=== PATIENT | female | born 1995 | race Caucasian/White ===

== ENCOUNTER 2024-07-08 14:36 | Outpatient (AMB) | payer MEDICAID, SELFPAY ==
[2024-07-08 14:51] VITALS: BP 106/67; PULSE 90; RESP 20; TEMP 36.4; O2SAT 98; BMI 26.9
--- NOTE | 2024-07-08 14:51 | AMB.GYNCLNOT ---
Vital Signs 07/08/24 14:51 Height 1.68 m Height Method Stated Weight 75.807 kg Weight Measurement Method Standing Scale BMI 26.9 BP 106/67 Blood Pressure Source Automatic Cuff Blood Pressure Location Right Upper Arm Position Sitting Respiration 20 Pulse 90 Pulse Source Monitor Temp 97.5 F Temp Source Temporal Artery Scan Pulse Oximetry (%) 98 Oxygen Delivery Method Room Air Allergies/Home Meds Allergies & Medications Allergies No Known Allergies Allergy (Unknown, Verified 07/08/24 14:52) Medication Reconciliation vit no.95-ferrous fumarate 28 mg-folic acid 800 mcg tablet () 1 tab PO QDAY 08/08/22 [History Confirmed 07/08/24] doxylamine 10 mg-pyridoxine (vit B6) 10 mg tablet,delayed release (Diclegis) 1 tab PO BID 30 days #60 tabs 07/08/24 [Rx] vitamins with calcium no.72-iron 29 mg-folic acid 1 mg tablet ( Plus) 1 tab PO QDAY 90 days #90 tabs 07/08/24 [Rx] Intake Visit Data Collection New Patient or Established: Established Patient (seen at [facility] within 3 years) 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 Do You Feel Safe at Home: Yes Authorities Contacted: N/A PCP or OBGYN visit in last 3 months: Yes Last menstrual period: 04/26/24 Pain Present Currently: No Smoking Status Smoking Status: Never smoker 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 1. Little interest or pleasure in doing things: not at all 2. Feeling down, depressed, or hopeless: not at all Total score: 0 Depression screen completed yes Social History Living Situation History Marital Status: Lives With: Family Housing: House Tobacco History Smoking Status: Never smoker Second Hand Smoke Exposure: No Alcohol History Alcohol Intake: Never Alcohol Intake Frequency: holidays/special occasions only Domestic Abuse History Do You Feel Safe at Home: Yes Past Medical History Past Medical History Have you ever been diagnosed with any of the following: Neurological Problems Seizures: No Migraine: Yes Cardiology Problems Congestive Heart Failure: No Respiratory Problems Chronic Obstructive Pulmonary Disease (COPD): No Asthma: Yes ( A CHILD) Bronchitis: No Emphysema: No Pneumonia: No Pulmonary Fibrosis: No Tuberculosis: No Pulmonary Embolism: No Pulmonary Edema: No Sleep Apnea: No Stomache/Intestinal Problems Hepatitis: No Genital/Urinary Problems Renal Disease: No Reproductive Problems Endometriosis: No Genital Herpes: No Gonorrhea: No Pelvic Inflammatory Disease: No Previous Pregnancies: Yes Syphilis: No Uterine Prolapse: No Endocrine Problems Diabetes Mellitus Type 1: No Diabetes Mellitus Type 2: No Other Problems Hospitalization: No Down Syndrome: No Developmental Delay: No Shingles: No Falls: No Blood Transfusions: No Blood Transfusion Reaction: No Anesthesia Reactions: No Organ Transplant: No Chemotherapy: No Radiation Therapy: No Hyperbaric Therapy: No MRSA: No VRSA: No Vancomycin-Resistant Enterococci: No Human Immunodeficiency Virus (HIV): No Chicken Pox: No Measles: No Mumps: No Rubella (Kinyarwanda Measles): No Pertussis: No Clostridium Difficile: No Cancer: No History of Present Illness HPI Narrative 29 yo for test/amenorrhea. lmp 04/26/24. EDC 01/30/25, happy with + preg test. complaints of nausea, no sab complaints. FOB involved. previous c/s last for breech. No PMH, no social habit. 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 IUP 10 w5/. last pap 2023. Review of Systems Review of Systems Systems Reviewed: All systems reviewed, normal except as documented Exam General Limitations: no limitations General Appearance: alert, in no apparent distress, comfortable, cooperative, healthy appearing, well developed and well groomed Head Head exam: atraumatic, normocephalic and normal inspection Chest Chest inspection: Present normal inspection and symmetric chest wall rise Resp Respiratory exam: Present normal lung sounds bilaterally Card Cardiovascular exam: Present regular rate, normal rhythm and normal heart sounds Abdominal Abdominal exam: Present soft and normal bowel sounds Psych Psychiatric exam: Present normal affect and normal mood Results Objective Laboratory: + test, IUP 10 week 5/7 Assessment & Plan Diagnosis / Problem List (1) Amenorrhea: Status: Acute (2) confirmed by positive urine test: Status: Acute Plan order OB panel, schedule 1st tri sono for viability and confirm dates. NIPT and carrier screen today. Diclegis ordered for nausea and prenatals. review sab precaution. discuss diet and rest, ER precaution. rtc for OBI Additional Plan Follow Up: 4 Weeks Office Procedures OB Clinic LOC & Office Proc's Nursing/Assessment Patient Status: Established Patient OB Clinic Nursing Assessment: Medication Reconciliation, Update PMH in EMR and Vital Signs OB Clinic Coordination of Care: Complex Care and Chronic Disease 1-5, Education Complex Pt/Fam, Consent,records obtained, informed consent, Lab and Imaging orders and Staff clarify orders Established Patient Charge Established Patient Point Assignment: 105 Established Patient Point Charge: EP Level 3 (80-115) In Clinic Bedside tests Bedside HCG: Yes Results HGB HGB n/a Last Edit by Lui Kelley MA on 07/08/24 15:08 HGB previously reported as positive Lui Kelley 07/08/24 15:08 test not perform Urine HCG Urine HCG Positive Last Edit by Lui Kelley MA on 07/08/24 15:08 Urine HCG previously reported as Negative Lui Kelley 07/08/24 15:08 error, results were put in twice Urine HCG Urine HCG Positive Last Edit by Lui Kelley MA on 07/08/24 15:00
== END 2024-07-08 15:37 | disposition home or self-care (01) ==
LOC: HODSOBC 14:36
PROVIDERS: PCP Family Medicine; Referring Provider Family Medicine; Supervising Provider Advanced Practice Midwife; Visit Provider Advanced Practice Midwife
DX: Z32.01 Encounter for pregnancy test, result positive (principal)
CPT/HCPCS: 81025; 99213; G0463

== ENCOUNTER 2024-07-30 14:07 | Outpatient (AMB) | payer MEDICAID, SELFPAY ==
[2024-07-30 14:27] VITALS: BP 98/65; PULSE 97; RESP 18; TEMP 36.2; O2SAT 98; BMI 27.6
--- NOTE | 2024-07-30 14:27 | AMB.OBVISIT ---
Vital Signs 07/30/24 14:27 Height 1.68 m Height Method Stated Weight 77.791 kg Weight Measurement Method Standing Scale BMI 27.6 BP 98/65 Blood Pressure Source Automatic Cuff Blood Pressure Location Right Upper Arm Position Sitting Respiration 18 Pulse 97 Pulse Source Monitor Temp 97.1 F Temp Source Oral Pulse Oximetry (%) 98 Oxygen Delivery Method Room Air Allergies/Home Meds Allergies & Medications Allergies No Known Allergies Allergy (Unknown, Verified 07/30/24 14:28) Medication Reconciliation vitamins with calcium no.72-iron 29 mg-folic acid 1 mg tablet ( Plus) 1 tab PO QDAY 90 days #90 tabs 07/08/24 [Rx Confirmed 07/30/24] Intake Visit Data Collection New Patient or Established: Established Patient (seen at [facility] within 3 years) Reason for Visit:: CARE Seen by Clinical Staff ONLY (RN/MA): No [place] Management Specialist Required: No Do You Feel Safe at Home: Yes Authorities Contacted: N/A PCP or OBGYN visit in last 3 months: Yes Hx Now: Yes Are you currently on any form of Control: No Pain Present Currently: No Pain Scale Used: [place]/Numerical Pain scale:: 0 Smoking Status Smoking Status: Never smoker Questionnaires Covid-19 Vaccine Questionnaire Has patient been vacinated for Covid-19 Have you been vacinated for Covid-19: Yes PHQ-9 PHQ-2 Over the last 2 weeks, how often have you been bothered by any of the following problems? 1. Little interest or pleasure in doing things: not at all 2. Feeling down, depressed, or hopeless: not at all Total score: 0 PHQ-9 3. Trouble falling or staying asleep, or sleeping too much: Not at all 4. Feeling tired or having little energy: Not at all 5. Poor appetite or overeating: Not at all 6. Feeling bad about yourself - or that you are a failure or have let yourself or your family down: Not at all 7. Trouble concentrating on things, such as reading the newspaper or watching television: Not at all 8. Moving or speaking so slowly that other people could have noticed? - Or the opposite - being so fidgety or restless that you have been moving around a lot more than usual: not at all 9. Thoughts that you would be better off or of hurting yourself in some way: Not at all Total score: 0 Source: Developed by Drs. Bill Mendoza, Milvia Goins, Itz Montero and colleagues, with an educational brea from [employer]. 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 improved with tylenol. light FM, no SAB complaintsc/o headache. improved with tylenol. Nausea most of the day comfort measure for nausea and head ache. Tylenol 2 tab q 6-8hr as needed for headache. increase protien, frequent meals.increase fluid. discuss SAB precaution. AFP NV, sched with MFM for anatomy scan. RTC 4 week TESSA Calculator Estimated Delivery Date Method Current WG Current Estimate 01/31/25 LMP (Certain) 13w 4d Comments: 29 yo . LMP 04/26/24, EDC 01/31/25. O+,abs-,rpr;;nr, rub imm, HBSAG-,hiv-,GC/CT-, HC-, NIPT and carrier screen- Office Procedures OB Clinic LOC & Office Proc's Nursing/Assessment Patient Status: Established Patient OB Clinic Nursing Assessment: Medication Reconciliation, Update PMH in EMR and Vital Signs OB Clinic Coordination of Care: Complex Care and Chronic Disease 1-5, Consent,records obtained, informed consent, Education Simp Pt/Fam, Lab and Imaging orders, Results/Orders obtained and Staff clarify orders Special Needs: Heart tones Established Patient Charge Established Patient Point Assignment: 135 Established Patient Point Charge: EP Level 4 (120-155) Assessment & Plan Diagnosis / Problem List (1) Normal in multigravida in second trimester: Status: Acute Plan AFP, schedule MFM anatomy scan, sab precaution. comfort measure for nausea and headache, Tylenol as needed, increase protien and fluid Additional Plan Follow Up: 4 Weeks (obc)
== END 2024-07-30 15:00 | disposition home or self-care (01) ==
LOC: HODSOBC 14:07
PROVIDERS: PCP Family Medicine; Referring Provider Family Medicine; Supervising Provider Advanced Practice Midwife; Visit Provider Advanced Practice Midwife
DX: Z34.81 Encounter for supervision of other normal pregnancy, first trimester (principal); Z3A.13 13 weeks gestation of pregnancy
CPT/HCPCS: 81001; 99214; G0463

== ENCOUNTER 2024-09-08 22:40 | Emergency (ER) | payer MEDICAID, SELFPAY ==
[2024-09-08 22:42] VITALS: BMI 28.4
[2024-09-08 23:03] VITALS: BP 106/70; PULSE 88; RESP 16; TEMP 36.7; O2SAT 99
--- NOTE | 2024-09-08 23:28 | EDNOTE_ITS ---
ED Extremity Problem RME/HPI General Chief complaint: Extremity Problem,Nontraumatic Stated complaint: WANT TO SEE IF THEY'LL REMOVE MY TOENAIL Time Seen by Provider: 09/08/24 22:59 Source: patient, RN notes reviewed and old records reviewed Arrival date/time: 09/08/24 22:40 Mode of arrival: ambulatory Limitations: no limitations RME / HPI RME / HPI Narrative: 29yof presents to ED for 3-day history of right great toe pain after getting a pedicure. Patient reports redness, swelling and pus draining from underneath toenail today. She removed part of the nail at home this afternoon. No fever or joint pain/swelling reported. No medications relief captain. Related Data Previous Rx's ?Medication ?Instructions ?Recorded vitamins with calcium 1 tab PO QDAY 90 days # 90 tabs 07/08/24 no.72-iron 29 mg-folic acid 1 mg tablet ( Plus) cephalexin 500 mg capsule 500 mg PO Q6H 7 days #28 cap s 09/08/24 Allergies Allergy/AdvReac Type Severity Reaction Status Date / Time No Known Allergies Allergy Unknown Verified 09/08/24 22:41 Review of Systems Review of Systems Systems Reviewed: All systems reviewed, normal except as documented Musculoskeletal Musculoskeletal: Denies arthralgias, Denies joint swelling and Denies limited range of motion Integumentary/Breasts Comments: Reports redness, swelling, nail changes Past Medical History Social History SMOKING STATUS: Never smoker SUBSTANCE USE: does not use ALCOHOL: Never Past Medical History Comments PMH COMMENT: denies pmhx ED Exam General Limitations: Present no limitations General appearance: Present alert and in no apparent distress Head Head exam: Present atraumatic and normocephalic Eye Eye exam: Present normal appearance, PERRL and EOMI ENT ENT exam: Present normal exam and mucous membranes moist Neck Neck exam: Present normal inspection and full ROM Chest Chest inspection: Present normal inspection and symmetric chest wall rise Respiratory Respiratory exam: Present normal lung sounds bilaterally; Absent respiratory distress Cardiovascular Cardiovascular exam: Present regular rate and normal rhythm Extremities Exam Extremities exam: Present other (Right great toenail distal half is removed (patient self removed at home). Mild erythema, swelling, purulence beneath remaining nail. Proximal nail remains intact) Neurological Exam Neurological exam: Present alert and oriented X3 Psychiatric Psychiatric exam: Present normal affect and normal mood Skin Skin exam: Present warm, dry and intact Course Quality Measures none Vital Signs Vital signs: Vital Signs Temperature 98.1 F 09/08/24 23:03 Pulse Rate 88 09/08/24 23:03 Respiratory Rate 16 09/08/24 23:03 Blood Pressure 106/70 09/08/24 23:03 Pulse Oximetry (%) 99 09/08/24 23:03 Oxygen Delivery Method Room Air 09/08/24 23:03 Extremity Problem MDM Narrative MDM Narrative:: 29yof presents to ED for 3-day history of right great toe pain after getting a pedicure. Patient reports redness, swelling and pus draining from underneath toenail today. She removed part of the nail at home this afternoon. No fever or joint pain/swelling reported. No medications relief captain. Proximal nail is intact. Will leave nail in place to encourage regrowth and preserve nailbed. Antibiotic will be prescribed for infection. No evidence of abscess or paronychia at this time. Encouraged f/u with podiatry if needed. Stable for dc, RTED precautions given. Patient data External records reviewed:: [facility] previous records (08/19/23 ED visit for miscarriage) Clinical information provided by:: patient Social determinants that could affect healthcare access:: none Patient has the following chronic illnesses:: none How is presenting disease/condition affected by chronic disease/condition?: no chronic disease Evaluation data The following diagnostics were reviewed and interpreted by me:: other (specify) (none) Lab and/or radiology exams considered but not ordered:: toe xrays: no hx of injury or trauma Interpretation Summary: na Medications / Prescriptions Medications or Prescriptions considered but not ordered:: none Medication administrations:: none Consultations Consultation(s) initiated? (list below): No Diagnosis Extremity Problem Differential Diagnosis: other (ingrown nail, cellulitis, abscess, paronychia, dermatitis) Most likely diagnosis given after review of the tests above:: toe pain/infection Admission Indicated Admission indicated?: not indicated Admission Request Was there a request for admission?: No Disposition Plan Disposition Plan: Discharge Discharge Attestation Discharge Attestation: The patient and all family members were given an opportunity to ask questions and understood the discharge instructions. Discharge instructions specifically effects, indications for sooner follow up or return to the emergency department, and the expected course of current diagnosis. Patient condition: Stable Discharge Plan Plan Patient Disposition: HOME (Self Care) Patient condition on transfer: Stable Prescriptions/Referrals Prescriptions/Med Rec: New cephalexin 500 mg capsule 500 mg PO Q6H 7 Days Qty: 28 0RF No Action Plus 29 mg iron- 1 mg tablet 1 tab PO QDAY 90 Days Qty: 90 3RF Referrals: [facility] [Other] - In 1 week No Primary/Family,Physician [Primary Care Provider] - In 1 week Ivan Richey DPM [Physician] - (Call to schedule an appointment for a visit as needed, if symptoms worsen) Problem List Clinical Impression: Infection of toenail Patient/Caregiver Discharge Instructions Education Materials: ED Toenail Ingrown Infec Abx Onl Print Language: Urdu Stand Alone Forms: Natasha Award Info., Patient Portal Info Letter PA/FISHING GAME WARDEN Supervising Physician PA/FISHING GAME WARDEN Supervising Physician: Poppy
== END 2024-09-08 23:37 | disposition home or self-care (01) ==
PROVIDERS: Emergency Provider Emergency Medicine
DX: L03.031 Cellulitis of right toe (principal)
CPT/HCPCS: 99281

== ENCOUNTER 2024-09-24 14:35 | Outpatient (AMB) | payer MEDICAID, SELFPAY ==
[2024-09-24 14:51] VITALS: BP 100/66; PULSE 80; RESP 17; TEMP 36.4; O2SAT 98; BMI 29.7
--- NOTE | 2024-09-24 14:51 | OBCLNT_ITS ---
Vital Signs 09/24/24 14:51 Height 1.68 m Height Method Measured Weight 83.915 kg Weight Measurement Method Standing Scale BMI 29.7 BP 100/66 Blood Pressure Source Automatic Cuff Blood Pressure Location Right Upper Arm Position Sitting Respiration 17 Pulse 80 Pulse Source Monitor Temp 97.6 F Temp Source Temporal Artery Scan Pulse Oximetry (%) 98 Oxygen Delivery Method Room Air Allergies/Home Meds Allergies & Medications Allergies No Known Allergies Allergy (Unknown, Verified 09/24/24 14:52) Medication Reconciliation vitamins with calcium no.72-iron 29 mg-folic acid 1 mg tablet ( Plus) 1 tab PO QDAY 90 days #90 tabs 07/08/24 [Rx Confirmed 09/24/24] Intake Visit Data Collection New Patient or Established: Established Patient (seen at [facility] within 3 years) Reason for Visit:: OBC Consent obtained for Telemed Visit: No Seen by Clinical Staff ONLY (RN/MA): No Employee Development Director Required: No Do You Feel Safe at Home: Yes Authorities Contacted: N/A PCP or OBGYN visit in last 3 months: Yes Date of Last PCP or OBGYN visit: 09/08/24 Hx Now: Yes Are you currently on any form of Control: No Pain Present Currently: Yes Pain scale:: 3 Smoking Status Smoking Status: Never smoker Questionnaires Covid-19 Vaccine Questionnaire Has patient been vacinated for Covid-19 Have you been vacinated for Covid-19: No PHQ-9 PHQ-2 Over the last 2 weeks, how often have you been bothered by any of the following problems? 1. Little interest or pleasure in doing things: not at all PHQ-9 3. Trouble falling or staying asleep, or sleeping too much: Not at all 4. Feeling tired or having little energy: Not at all 5. Poor appetite or overeating: Not at all 6. Feeling bad about yourself - or that you are a failure or have let yourself or your family down: Not at all 7. Trouble concentrating on things, such as reading the newspaper or watching television: Not at all 8. Moving or speaking so slowly that other people could have noticed? - Or the opposite - being so fidgety or restless that you have been moving around a lot more than usual: not at all 9. Thoughts that you would be better off or of hurting yourself in some way: Not at all If you checked off any problems, how difficult have these problems made it for you to do your work, take care of things at home, or get along with other people?: not difficult at all Source: Developed by Drs. Bill Mendoza, Milvia Goins, Itz Montero and colleagues, with an educational brea from [employer]. 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 improved with tylenol. light FM, no SAB complaintsc /o headache. improved with tylenol. Nausea most of the day comfort measure for nausea and head ache. Tylenol 2 tab q 6-8hr as needed for headache. increase protien, frequent meals.increase fluid. discuss SAB precaution. AFP NV, sched with MFM for anatomy scan. RTC 4 week 09/24/24 -?-?-?-?-?-?-?-?-?-?-?-?- 21w 4d 83.915 kg 100/66 absent unknown 20 145 active doing well. fetus active. no c/o uc,leaking,bleeding. c/o pelvic pain. reports new varicose vein R inner leg, inside near knee. no c/o phlebitis mfm scheduled for 09/26. discuss ptl precaution. comfort measure for varicose veins and pelvic pain. rtc 4 week. 3rd tri lab nv TESSA Calculator Estimated Delivery Date Method Current WG Current Estimate 01/31/25 LMP (Certain) 21w 4d Notes Visit Date: 09/24/24 Last Updated by: Muriel Davis CNM LMP: 04/26/24. EDC 01/31/25. OB panel: O+,abs-, rpr;;nr, rub imm, hbsag-, hiv-, HC-, GC/CT-, NIPT-/female, sma/cf- Office Procedures OB Clinic LOC & Office Proc's Nursing/Assessment Patient Status: Established Patient OB Clinic Nursing Assessment: Medication Reconciliation, Update PMH in EMR and Vital Signs OB Clinic Coordination of Care: Complex Care and Chronic Disease 1-5, Consent,records obtained, informed consent, Education Simp Pt/Fam and 4+ Authorizations needed Special Needs: Heart tones Established Patient Charge Established Patient Point Assignment: 130 Established Patient Point Charge: EP Level 4 (120-155) Assessment & Plan Diagnosis / Problem List (1) High risk for intrapartum complications in second trimester: Status: Acute (2) Encounter for maternal care for low transverse scar from previous delivery: Status: Acute Plan Discuss labs. MFM 09/26/24. 3rd tri lab NV. discuss ptl precaution. rtc 4 week obc. comfort measure for pelvic pain and varicose veins Additional Plan Follow Up: 4 Weeks (obc)
== END 2024-09-24 15:28 | disposition home or self-care (01) ==
PROVIDERS: PCP Advanced Practice Midwife; Referring Provider Advanced Practice Midwife; Supervising Provider Advanced Practice Midwife; Visit Provider Advanced Practice Midwife
DX: O09.292 Supervision of pregnancy with other poor reproductive or obstetric history, second trimester (principal); O34.211 Maternal care for low transverse scar from previous cesarean delivery; O09.892 Supervision of other high risk pregnancies, second trimester; O22.02 Varicose veins of lower extremity in pregnancy, second trimester; I83.811 Varicose veins of right lower extremity with pain; Z3A.21 21 weeks gestation of pregnancy
CPT/HCPCS: 99214; G0463

== ENCOUNTER 2024-10-21 14:38 | Outpatient (AMB) | payer MEDICAID, SELFPAY ==
[2024-10-21 14:51] VITALS: BP 100/62; PULSE 91; RESP 18; TEMP 36.2; O2SAT 98; BMI 30.4
--- NOTE | 2024-10-21 14:51 | OBCLNT_ITS ---
Vital Signs 10/21/24 14:51 Height 1.68 m Height Method Stated Weight 85.899 kg Weight Measurement Method Standing Scale BMI 30.4 BP 100/62 Blood Pressure Source Automatic Cuff Blood Pressure Location Left Upper Arm Position Sitting Respiration 18 Pulse 91 Pulse Source Monitor Temp 97.1 F Temp Source Oral Pulse Oximetry (%) 98 Oxygen Delivery Method Room Air Allergies/Home Meds Allergies & Medications Allergies No Known Allergies Allergy (Unknown, Verified 10/21/24 14:52) Medication Reconciliation vitamins with calcium no.72-iron 29 mg-folic acid 1 mg tablet ( Plus) 1 tab PO QDAY 90 days #90 tabs 07/08/24 [Rx Confirmed 10/21/24] clotrimazole 1 % vaginal cream 1 appful vaginal QHS #45 grams 10/21/24 [Rx] metronidazole 500 mg tablet 500 mg PO BID 7 days #14 tabs 10/21/24 [Rx] Intake Visit Data Collection New Patient or Established: Established Patient (seen at [facility] within 3 years) Reason for Visit:: CARE Seen by Clinical Staff ONLY (RN/MA): No Broadcast Maintenance Technician Required: No Do You Feel Safe at Home: Yes Authorities Contacted: N/A PCP or OBGYN visit in last 3 months: Yes Hx Now: Yes Are you currently on any form of Control: No Pain Present Currently: No Pain Scale Used: [place]/Numerical Pain scale:: 0 Smoking Status Smoking Status: Never smoker Questionnaires Covid-19 Vaccine Questionnaire Has patient been vacinated for Covid-19 Have you been vacinated for Covid-19: No PHQ-9 PHQ-2 Over the last 2 weeks, how often have you been bothered by any of the following problems? 1. Little interest or pleasure in doing things: not at all 2. Feeling down, depressed, or hopeless: not at all Total score: 0 PHQ-9 3. Trouble falling or staying asleep, or sleeping too much: Not at all 4. Feeling tired or having little energy: Not at all 5. Poor appetite or overeating: Not at all 6. Feeling bad about yourself - or that you are a failure or have let yourself or your family down: Not at all 7. Trouble concentrating on things, such as reading the newspaper or watching television: Not at all 8. Moving or speaking so slowly that other people could have noticed? - Or the opposite - being so fidgety or restless that you have been moving around a lot more than usual: not at all 9. Thoughts that you would be better off or of hurting yourself in some way: Not at all Total score: 0 Source: Developed by Drs. Bill Mendoza, Milvia Goins, Itz Montero and colleagues, with an educational brea from [employer]. 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 improved with tylenol. light FM, no SAB complaintsc /o headache. improved with tylenol. Nausea most of the day comfort measure for nausea and head ache. Tylenol 2 tab q 6-8hr as needed for headache. increase protien, frequent meals.increase fluid. discuss SAB precaution. AFP NV, sched with MFM for anatomy scan. RTC 4 week 09/24/24 -?-?-?-?-?-?-?-?-?-?-?-?- 21w 4d 83.915 kg 100/66 absent unknown 20 145 active doing well. fetus active. no c/o uc,leaking,bleeding. c/o pelvic pain. reports new varicose vein R inner leg, inside near knee. no c/o phlebitis mfm scheduled for 09/26. discuss ptl precaution. comfort measure for varicose veins and pelvic pain. rtc 4 week. 3rd tri lab nv 10/21/24 -?-?-?-?-?-?-?-?-?-?-?-?- 25w 3d 85.899 kg 100/62 absent unknown 25 145 active Patient for unschedule d visit today. Complains of feeling balls in the vaginal perineal area. Patient states that the lumps seem to disappear when she is lying down. And increase when she stands up. The lumps are not painful. Patient has on examination a large area increased varicosities. Nontender to touch. No phlebitis noted and not swelling. Perineal area is clean no lesions. When patient stands there is a fullness in both labia however labia is soft and nontender to palpation. There is a increased varicosity near the clitoris. And I felt like in the right groin area lymph node. Vagina is red and swollen. Increased white clumpy discharge. And slight odor. Fetus is active. Increase rest. Elevate hips. Try to limit standing or sitting in 1 position. I discussed perineal support and comfort measures. New swab today. 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 Third trimester labs were ordered. Patient referred to OB for previous management TESSA Calculator Estimated Delivery Date Method Current WG Current Estimate 01/31/25 LMP (Certain) 25w 3d Notes Visit Date: 09/24/24 Last Updated by: Muriel Davis CNM LMP: 04/26/24. EDC 01/31/25. OB panel: O+,abs-, rpr;;nr, rub imm, hbsag-, hiv-, HC-, GC/CT-, NIPT-/female, sma/cf- Office Procedures OB Clinic LOC & Office Proc's Nursing/Assessment Patient Status: Established Patient OB Clinic Nursing Assessment: Medication Reconciliation, Update PMH in EMR and Vital Signs OB Clinic Coordination of Care: Complex Care and Chronic Disease 1-5, Consent,records obtained, informed consent, Education Simp Pt/Fam, Lab and Imaging orders, Results/Orders obtained and Staff clarify orders Special Needs: Heart tones Established Patient Charge Established Patient Point Assignment: 135 Established Patient Point Charge: EP Level 4 (120-155) Assessment & Plan Diagnosis / Problem List (1) High risk for intrapartum complications in second trimester: Status: Acute (2) Encounter for maternal care for low transverse scar from previous delivery: Status: Acute (3) Vaginitis: Status: Acute Plan New swab plus today. I gave patient prescription for Flagyl 500 twice daily x 7 days and also clotrimazole 1% nightly x 7. Discussed comfort measures for vaginitis. I advised of the support and maternity girdle. Patient declined compression stockings at this time. Discussed labor precautions. Third trimester labs were ordered. Patient has follow-up maternal- medicine appointment in a week.. Schedule with OB for repeat in 4 weeks Additional Plan Follow Up: 4 Weeks (obc)
== END 2024-10-21 15:24 | disposition home or self-care (01) ==
LOC: HODSOBC 14:38
PROVIDERS: Supervising Provider Advanced Practice Midwife; Visit Provider Advanced Practice Midwife
DX: O09.292 Supervision of pregnancy with other poor reproductive or obstetric history, second trimester (principal); O34.211 Maternal care for low transverse scar from previous cesarean delivery; O09.892 Supervision of other high risk pregnancies, second trimester; O23.592 Infection of other part of genital tract in pregnancy, second trimester; N76.0 Acute vaginitis; Z3A.25 25 weeks gestation of pregnancy
CPT/HCPCS: 99214; G0463

== ENCOUNTER 2024-11-10 15:05 | Observation (INO) | payer MEDICAID, SELFPAY ==
[2024-11-10] VITALS (20 sets, daily range): BP systolic 94–105; BP diastolic 54–59; PULSE 87–104; RESP 16–98; TEMP 36.8; O2SAT 97–100
== END 2024-11-10 16:19 | disposition home or self-care (01) ==
PROVIDERS: Admitting Provider Specialist; Visit Provider Specialist
DX: O36.8130 Decreased fetal movements, third trimester, not applicable or unspecified (principal); Z3A.28 28 weeks gestation of pregnancy
CPT/HCPCS: 59025; 59899

== ENCOUNTER 2024-11-21 14:27 | Outpatient (AMB) | payer MEDICAID, SELFPAY ==
[2024-11-21 14:37] VITALS: BP 97/62; PULSE 105; RESP 16; TEMP 36.2; O2SAT 98
--- NOTE | 2024-11-21 14:37 | OBCLNT_ITS ---
Vital Signs 11/21/24 14:37 Weight 89.358 kg Weight Measurement Method Standing Scale BP 97/62 Blood Pressure Source Automatic Cuff Blood Pressure Location Left Upper Arm Position Sitting Respiration 16 Pulse 105 H Pulse Source Monitor Temp 97.2 F Temp Source Oral Pulse Oximetry (%) 98 Oxygen Delivery Method Room Air Allergies/Home Meds Allergies & Medications Allergies No Known Allergies Allergy (Unknown, Verified 12/04/24 15:11) Medication Reconciliation vitamins with calcium no.72-iron 29 mg-folic acid 1 mg tablet ( Plus) 1 tab PO QDAY 90 days #90 tabs 07/08/24 [Rx Confirmed 12/04/24] Intake Visit Data Collection New Patient or Established: Established Patient (seen at [facility] within 3 years) Reason for Visit:: OBC Seen by Clinical Staff ONLY (RN/MA): No Steersman Required: No Do You Feel Safe at Home: Yes Authorities Contacted: N/A PCP or OBGYN visit in last 3 months: Yes Date of Last PCP or OBGYN visit: 11/10/24 Hx Now: Yes Are you currently on any form of Control: No Pain Present Currently: No Pain Scale Used: [place]/Numerical Pain scale:: 0 Smoking Status Smoking Status: Never smoker Questionnaires Covid-19 Vaccine Questionnaire Has patient been vacinated for Covid-19 Have you been vacinated for Covid-19: Yes PHQ-9 PHQ-2 Over the last 2 weeks, how often have you been bothered by any of the following problems? 1. Little interest or pleasure in doing things: not at all 2. Feeling down, depressed, or hopeless: not at all Total score: 0 PHQ-9 3. Trouble falling or staying asleep, or sleeping too much: Not at all 4. Feeling tired or having little energy: Not at all 5. Poor appetite or overeating: Not at all 6. Feeling bad about yourself - or that you are a failure or have let yourself or your family down: Not at all 7. Trouble concentrating on things, such as reading the newspaper or watching television: Not at all 8. Moving or speaking so slowly that other people could have noticed? - Or the opposite - being so fidgety or restless that you have been moving around a lot more than usual: not at all 9. Thoughts that you would be better off or of hurting yourself in some way: Not at all Total score: 0 If you checked off any problems, how difficult have these problems made it for you to do your work, take care of things at home, or get along with other people?: not difficult at all Source: Developed by Drs. Bill Mendoza, Milvia Goins, Itz Montero and colleagues, with an educational brea from [employer]. 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 improved with tylenol. light FM, no SAB complaintsc /o headache. improved with tylenol. Nausea most of the day comfort measure for nausea and head ache. Tylenol 2 tab q 6-8hr as needed for headache. increase protien, frequent meals.increase fluid. discuss SAB precaution. AFP NV, sched with MFM for anatomy scan. RTC 4 week 09/24/24 -?-?-?-?-?-?-?-?-?-?-?-?- 21w 4d 83.915 kg 100/66 absent unknown 20 145 active doing well. fetus active. no c/o uc,leaking,bleeding. c/o pelvic pain. reports new varicose vein R inner leg, inside near knee. no c/o phlebitis mfm scheduled for 09/26. discuss ptl precaution. comfort measure for varicose veins and pelvic pain. rtc 4 week. 3rd tri lab nv 10/21/24 -?-?-?-?-?-?-?-?-?-?-?-?- 25w 3d 85.899 kg 100/62 absent unknown 25 145 active Patient for unscheduled visit today. Complains of feeling balls in the vaginal perineal area. Patient states that the lumps seem to disappear when she is lying down. And increase when she stands up. The lumps are not painful. Patient has on examination a large area increased varicosities. Nontender to touch. No phlebitis noted and not swelling. Perineal area is clean no lesions. When patient stands there is a fullness in both labia however labia is soft and nontender to palpation. There is a increased varicosity near the clitoris. And I felt like in the right groin area lymph node. Vagina is red and swollen. In creased white clumpy discharge. And slight odor. Fetus is active. Increase rest. Elevate hips. Try to limit standing or sitting in 1 position. I discussed perineal support and comfort measures. New swab today. 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 Third trimester labs were ordered. Patient referred to OB for previous management 11/21/24 -?-?-?--?-?-?-?-?-?-?-?-?- 29w 6d 89.358 kg 97/62 absent unknown 30 146 active - Tabitha Vicente is a 4 para 3 patient at 29 weeks and 6 days gestation, with a history of previous , presenting for a visit. - Patient reports experiencing cramps (n o further details provided). - She mentions having varicose veins. - Patient expresses interest in explorin g the possibility of a vaginal after (). Plan - Schedule date (to be determi zoe) - Follow up in 2 weeks - Recommend pressure stockings for varic ose veins - Provided option to transfer care to [facility] for possibility - Suggested patient call [facility] and [facility] office in [place] to inquire about transfer for - Offered to transfer medical records if patient finds a provider willing to accept transfer 12/04/24 -?-?-?-?-?-?-?-?-?-?-?-?- 31w 5d 89.981 kg 92/89 absent unknown TESSA Calculator Estimated Delivery Date Method Current WG Current Estimate 01/31/25 LMP (Certain) 31w 5d Notes Visit Date: 11/21/24 Last Updated by: Willi Bueno MD - CBC: Hemoglobin 11.7 g/dL, Platelets 182 - Hemoglobin A1c: 4.9% - Glucose: 100 mg/dL, 107 mg/dL - Rp (Rapid plasma reagin): Non-reactive Visit Date: 09/24/24 Last Updated by: Muriel Davis CNM LMP: 04/26/24. EDC 01/31/25. OB panel: O+,abs-, rpr;;nr, rub imm, hbsag-, hiv-, HC-, GC/CT-, NIPT-/female, sma/cf- Assessment & Plan Diagnosis / Problem List (1) Encounter for maternal care for low transverse scar from previous delivery: Status: Acute Plan Problem List - , 29 weeks and 6 days - History of previous section - Varicose veins of lower extremities Assessment 4 para 3 at 29 weeks and 6 days gestation with history of previous C- section. Patient reports experiencing crampings and varicose veins. heart rate auscultated at 146 bpm, which is within normal range. Third-trimester labs reveal hemoglobin of 11.7, platelets of 182, A1c of 4.9, non-reactive Rp, and glucose of 100-107. All lab values are reported to be within normal range. Latha mauricio is considering (vaginal after ) options, which are not available at the current hospital due to policy restrictions. Plan - Schedule date (to be determined) - Follow up in 2 weeks - Recommend pressure stockings for varicose veins - Provided option to transfer care to [place] for possibility - Suggested patient call [facility] in [place] and [facility] office in [place] to inquire about transfer for - Offered to transfer medical records if patient finds a provider willing to accept transfer 1. Progress Reviewed gestational age, growth, and heart rate. Planned frequent visits (every 2 weeks until 36 weeks, then weekly). 2. Instructed patient to monitor movements and report decreases immediately. 3. Testing Counseled on routine third-trimester labs per guidelines. Discussed potential need for ultrasound or monitoring based on risk factors. 4. Preeclampsia Precaution Educated on preeclampsia signs: severe headache, vision changes, right upper quadrant pain, sudden swelling. Advised urgent reporting of symptoms and discussed blood pressure monitoring if high risk. 5. Labor Precautions Reviewed labor signs: regular contractions, pelvic pressure, back pain, bleeding, or fluid leakage. Instructed to seek immediate care for these symptoms. 6. Lifestyle and Delivery Preparation Reinforced vitamins, nutrition, and safe activity. Discussed plan, pain management, and . Advised on labor preparation (e.g., hospital bag) and expectations. 7. Psychosocial Support Assessed emotional well-being and offered resources for mental health or parenting support.
== END 2024-11-21 14:56 | disposition home or self-care (01) ==
LOC: HODSOBC 14:27
PROVIDERS: Supervising Provider Obstetrics & Gynecology; Visit Provider Obstetrics & Gynecology
DX: O09.293 Supervision of pregnancy with other poor reproductive or obstetric history, third trimester (principal); O34.211 Maternal care for low transverse scar from previous cesarean delivery; Z3A.29 29 weeks gestation of pregnancy; O09.893 Supervision of other high risk pregnancies, third trimester; O22.03 Varicose veins of lower extremity in pregnancy, third trimester; I83.93 Asymptomatic varicose veins of bilateral lower extremities; O22.13 Genital varices in pregnancy, third trimester
CPT/HCPCS: 99213; G0463

== ENCOUNTER 2024-11-26 11:50 | Observation (INO) | payer MEDICAID, SELFPAY ==
[2024-11-26] VITALS (30 sets, daily range): BP systolic 79–100; BP diastolic 45–59; PULSE 81–141; RESP 20–99; TEMP 36.7–36.8; O2SAT 97–99; BMI 43.9
--- NOTE | 2024-11-26 12:16 | XR_ITS ---
Examination: Abdomen sonogram, Limited Date and time of exam: November 26, 2024 1244 hours INDICATIONS: Right upper abdominal pain beginning 2 days ago Technique: Real-time dumont scale transabdominal sonographic images of the upper abdomen obtained. Findings: Normal gallbladder. Normal common bile duct 0.4 cm Pancreas obscured by bowel gas. Liver 14.8 cm no liver lesions Normal hepatopedal portal venous oh Patent IVC IMPRESSION: Normal gallbladder
[2024-11-26] MEDS: RINGERS LACTATED 1000 ML 1,000 ML 999 ML IV (12:43)
[2024-11-26] MEDS: ACETAMINOPHEN 500 MG TABLET 1000 MG PO (13:02)
[2024-11-26 13:10] LABS: Influenza A Ag Negative; Influenza B Ag Negative
[2024-11-26 13:25] LABS: COVID-19 Antigen (In-House) Negative (Negative)
--- NOTE | 2024-11-26 13:39 | PD.LDPN ---
Documentation for date of: 11/26/24 OB Labor Progress Note Pelvic Exam Amniotic membrane status: Intact Contractions Monitor mode: External Contraction frequency: 0 Status status: Category l Assessment and Plan Comments: Triage Note Tabitha is a 29yo with SIUP at 31+wk presenting to L&D for diarrhea and RUQ pain x 3 days, headache. No n/v. No one else sick at home. No fevers/chills. No cough/congestion/runny nose. She notes no painful/regular ctx, no vaginal bleeding, no loss of fluid. Normal movement. PMhx/PNC significant for: -Hx of 1 section for breech presentation -CN[facility] [place] for PNC ROS negative other than what was described above. Initially tachycardia 110's which resolved with 1L IVF, low-normal bp's (baseline for patient), afebrile General: well developed, well nourished, no acute distress, conversant Cardiac: normal heart rate after IVF Lungs: breathing without distress Abdomen: soft, gravid, non-tender, no rebound or guarding Extremities: no edema of BLE NST: Reassuring for gestational age, +accels, no decels, mod mallika [place]: no regular ctx pattern Labs: Swabs for influenza A/B and Covid all negative Radiology: Examination: Abdomen sonogram, Limited Date and time of exam: November 26, 2024 1244 hours INDICATIONS: Right upper abdominal pain beginning 2 days ago Technique: Real-time dumont scale transabdominal sonographic images of the upper abdomen obtained. Findings: Normal gallbladder. Normal common bile duct 0.4 cm Pancreas obscured by bowel gas. Liver 14.8 cm no liver lesions Normal hepatopedal portal venous oh Patent IVC IMPRESSION: Normal gallbladder Assessment: Tabitha is a 29yo with SIUP at 31+wk with diarrhea and RUQ pain x3 days. Normal RUQ ultrasound. Covid and influenza A/B testing negative. Headache and RUQ pain resolved with tylenol. After 1L IVF and tylenol, she is feeling much better and FHRT is Cat I. Vitals wnl, benign exam. Plan: -BRAT diet, hydrate well -Follow up at routine OB visit as scheduled -Return precautions discussed Renetta Georges MD
== END 2024-11-26 13:55 | disposition home or self-care (01) ==
PROVIDERS: Admitting Provider Obstetrics & Gynecology; Visit Provider Obstetrics & Gynecology
DX: O26.893 Other specified pregnancy related conditions, third trimester (principal); R19.7 Diarrhea, unspecified; R10.11 Right upper quadrant pain; R51.9 Headache, unspecified; Z3A.31 31 weeks gestation of pregnancy
CPT/HCPCS: 59025; 59899; 76705; 87502; 87811; J7120; A9270

== ENCOUNTER 2024-12-04 15:01 | Outpatient (AMB) | payer MEDICAID, SELFPAY ==
[2024-12-04 15:09] VITALS: BP 92/89; PULSE 89; RESP 16; TEMP 36.2; O2SAT 98; BMI 44.6
--- NOTE | 2024-12-04 15:09 | OBCLNT_ITS ---
Vital Signs 12/04/24 15:09 Height 1.42 m Height Method Stated Weight 89.981 kg Weight Measurement Method Standing Scale BMI 44.6 BP 92/89 H Blood Pressure Source Automatic Cuff Blood Pressure Location Left Upper Arm Position Sitting Respiration 16 Pulse 89 Pulse Source Monitor Temp 97.2 F Temp Source Oral Pulse Oximetry (%) 98 Oxygen Delivery Method Room Air Allergies/Home Meds Allergies & Medications Allergies No Known Allergies Allergy (Unknown, Verified 12/04/24 15:11) Medication Reconciliation vitamins with calcium no.72-iron 29 mg-folic acid 1 mg tablet ( Plus) 1 tab PO QDAY 90 days #90 tabs 07/08/24 [Rx Confirmed 12/04/24] Intake Visit Data Collection New Patient or Established: Established Patient (seen at [facility] within 3 years) Reason for Visit:: OBC Seen by Clinical Staff ONLY (RN/MA): No Pathology Assistant Required: No Do You Feel Safe at Home: Yes Authorities Contacted: N/A PCP or OBGYN visit in last 3 months: Yes Date of Last PCP or OBGYN visit: 11/26/24 Hx Now: Yes Are you currently on any form of Control: No Pain Present Currently: No Pain Scale Used: [place]/Numerical Pain scale:: 0 Smoking Status Smoking Status: Never smoker Questionnaires Covid-19 Vaccine Questionnaire Has patient been vacinated for Covid-19 Have you been vacinated for Covid-19: Yes PHQ-9 PHQ-2 Over the last 2 weeks, how often have you been bothered by any of the following problems? 1. Little interest or pleasure in doing things: not at all 2. Feeling down, depressed, or hopeless: not at all Total score: 0 PHQ-9 3. Trouble falling or staying asleep, or sleeping too much: Not at all 4. Feeling tired or having little energy: Not at all 5. Poor appetite or overeating: Not at all 6. Feeling bad about yourself - or that you are a failure or have let yourself or your family down: Not at all 7. Trouble concentrating on things, such as reading the newspaper or watching television: Not at all 8. Moving or speaking so slowly that other people could have noticed? - Or the opposite - being so fidgety or restless that you have been moving around a lot more than usual: not at all 9. Thoughts that you would be better off or of hurting yourself in some way: Not at all Total score: 0 If you checked off any problems, how difficult have these problems made it for you to do your work, take care of things at home, or get along with other people?: not difficult at all Source: Developed by Drs. Bill Mendoza, Milvia Goins, Itz Montero and colleagues, with an educational brea from [employer]. Depression screen completed yes Social History Living Situation History Marital Status: Single Lives With: Family Housing: House Tobacco History Smoking Status: Never smoker Second Hand Smoke Exposure: No Alcohol History Alcohol Intake: Never Alcohol Intake Frequency: holidays/special occasions only Domestic Abuse History Do You Feel Safe at Home: Yes [employer]: Past Medical History Past Medical History: Yes Hx Neurological Disorders, No Hx Cardiac Disorders, No Hx Cancer, No Hx Blood Disorders, No Hx Gastrointestinal Disorders, No Hx Renal Disease, No Hx Diabetes Mellitus Type 1 and No Hx Diabetes Mellitus Type 2 Care OB Visit Log OB Flowsheet Initial Weight: Not Recorded Date -?-?-?-?-?-?-?-?-?-?-?-?- EGA Weight BP Alb Glu CTX Pres Fundal ht FHR Mov Dilation Station Effacement Hx Notes Visit Note 07/30/24 -?-?-?-?-?-?-?-?-?-?-?-?- 13w 4d 77.791 kg 98/65 absent unknown 15 156 active light FM, no SAB complaintsc/o headache. improved with tylenol. light FM, no SAB complaintsc /o headache. improved with tylenol. Nausea most of the day comfort measure for nausea and head ache. Tylenol 2 tab q 6-8hr as needed for headache. increase protien, frequent meals.increase fluid. discuss SAB precaution. AFP NV, sched with MFM for anatomy scan. RTC 4 week 09/24/24 -?-?-?-?-?-?-?-?-?-?-?-?- 21w 4d 83.915 kg 100/66 absent unknown 20 145 active doing well. fetus active. no c/o uc,leaking,bleeding. c/o pelvic pain. reports new varicose vein R inner leg, inside near knee. no c/o phlebitis mfm scheduled for 09/26. discuss ptl precaution. comfort measure for varicose veins and pelvic pain. rtc 4 week. 3rd tri lab nv 10/21/24 -?-?-?-?-?-?-?-?-?-?-?-?- 25w 3d 85.899 kg 100/62 absent unknown 25 145 active Patient for unscheduled visit today. Complains of feeling balls in the vaginal perineal area. Patient states that the lumps seem to disappear when she is lying down. And increase when she stands up. The lumps are not painful. Patient has on examination a large area increased varicosities. Nontender to touch. No phlebitis noted and not swelling. Perineal area is clean no lesions. When patient stands there is a fullness in both labia however labia is soft and nontender to palpation. There is a increased varicosity near the clitoris. And I felt like in the right groin area lymph node. Vagina is red and swollen. Increased white clumpy discharge. And slight odor. Fetus is active. Increase rest. Elevate hips. Try to limit standing or sitting in 1 position. I discussed perineal support and comfort measures. New swab today. [employer] Lotrimin x 7 and Flagyl 500 twice daily to patient. Third trimester labs were ordered. Patient referred to OB for previous management 11/21/24 -?-?-?-?-?-?-?-?-?-?-?-?- 29w 6d 89.358 kg 97/62 absent unknown 30 146 active - Tabitha Vicente is a 4 para 3 patient at 29 weeks and 6 days gestation, with a history of previous , presenting for a visit. - Patient reports experiencing cramps (n o further details provided). - She mentions having varicose veins. - Patient expresses interest in explorin g the possibility of a vaginal after (). Plan - Schedule date (to be determi zoe) - Follow up in 2 weeks - Recommend pressure stockings for varic ose veins - Provided option to transfer care to [facility] for possibility - Suggested patient call [place] office fahad Fitzpatrick and [facility] office in [place] to inquire about transfer for - Offered to transfer medical records if patient finds a provider willing to accept transfer 12/04/24 -?-?-?-?-?-?-?-?-?-?-?-?- 31w 5d 89.981 kg absent unknown 32 155 - Patient was hospitalized last week for feeling unwell and was diagnosed with dehydration. - She experienced difficulty breathing and pain on her sides during that episode. - Ultrasound was performed during hosp italization and baby was reported to be okay. - She continues to experience difficulty breathing, describing feeling like she can't breathe. - Patient reports ongoing pain on her si juanjose extending all the way to the bottom. - She is currently exploring option s and was previously advised to contact her primary OB for referral. Kalli n - Follow up in 2 weeks - Consider scheduling as backu p plan - Monitor for signs of labor: co ntractions, water breaking, or bleeding - Advised to seek transfer of care befor e 34 weeks if considering - Manage discomfort: - For kidney pain and pressure symptom s, try positional changes - Symptoms likely to persist until del maxwell due to uterine compression on ureters - Scheduled at 39 weeks if no spontaneous labor occurs TESSA Calculator Estimated Delivery Date Method Current WG Current Estimate 01/31/25 LMP (Certain) 31w 6d Notes Visit Date: 11/21/24 Last Updated by: Willi Bueno MD - CBC: Hemoglobin 11.7 g/dL, Platelets 182 - Hemoglobin A1c: 4.9% - Glucose: 100 mg/dL, 107 mg/dL - Rp (Rapid plasma reagin): Non-reactive Visit Date: 09/24/24 Last Updated by: Muriel Davis CNM LMP: 04/26/24. EDC 01/31/25. OB panel: O+,abs-, rpr;;nr, rub imm, hbsag-, hiv-, HC-, GC/CT-, NIPT-/female, sma/cf- Office Procedures OBC Clinic LOC & Office Proc's Nursing/Assessment Patient Status: Established Patient OB Clinic Nursing Assessment: Medication Reconciliation, Update PMH in EMR and Vital Signs OB Clinic Coordination of Care: Education Complex Pt/Fam, Consent,records obtained, informed consent, Education Simp Pt/Fam, Lab and Imaging orders, Results/Orders obtained and Staff clarify orders Special Needs: Heart tones Established Patient Charge Established Patient Point Assignment: 130 Established Patient Point Charge: EP Level 4 (120-155) Assessment & Plan Diagnosis / Problem List (1) Vaginitis: Status: Acute Plan Problem List - - History of section - Hydronephrosis - Sciatica Assessment 5 para 3 at approximately 34 weeks gestation with history of previous C- section, considering . Patient recently hospitalized for dehydration, presenting with dyspnea and flank pain. Workup ruled out labor. Current symptoms include persistent dyspnea and pain radiating to lower back, likely due to hydronephrosis from uterine compression of ureters. heart rate auscultated at 155 bpm, within normal range. Patient also experiencing positional pressure symptoms related to positioning. Plan - Follow up in 2 weeks - Consider scheduling as backup plan - Monitor for signs of labor: contractions, water breaking, or bleeding - Advised to seek transfer of care before 34 weeks if considering - Manage discomfort: - For kidney pain and pressure symptoms, try positional changes - Symptoms likely to persist until delivery due to uterine compression on ureters - Scheduled at 39 weeks if no spontaneous labor occurs 1. Progress Reviewed gestational age, growth, and heart rate (155, normal). Plan zoe frequent visits (every 2 weeks until 36 weeks, then weekly). 2. Instructed patient to monitor movements and report decreases immediately. 3. Testing Counseled on routine third-trimester labs per guidelines. Discussed potential need for ultrasound or monitoring based on risk factors. 4. Preeclampsia Precaution Educated on preeclampsia signs: severe headache, vision changes, right upper quadrant pain, sudden swelling. Advised urgent reporting of symptoms and discussed blood pressure monitoring if high risk. 5. Labor Precautions Reviewed labor signs: regular contractions, pelvic pressure, back pain, bleeding, or fluid leakage. Instructed to seek immediate care for these symptoms. 6. Lifestyle and Delivery Preparation Reinforced vitamins, nutrition, and safe activity. Discussed plan, pain management, and . Advised on labor preparation (e.g., hospital bag) and expectations. 7. Psychosocial Support Assessed emotional well-being and offered resources for mental health or parenting support.
== END 2024-12-04 15:49 | disposition home or self-care (01) ==
LOC: HODSOBC 15:01
PROVIDERS: Supervising Provider Obstetrics & Gynecology; Visit Provider Obstetrics & Gynecology
DX: O09.893 Supervision of other high risk pregnancies, third trimester (principal); O23.593 Infection of other part of genital tract in pregnancy, third trimester; N76.0 Acute vaginitis; O09.293 Supervision of pregnancy with other poor reproductive or obstetric history, third trimester; O34.219 Maternal care for unspecified type scar from previous cesarean delivery; Z3A.31 31 weeks gestation of pregnancy
CPT/HCPCS: 99214; G0463

== ENCOUNTER 2024-12-20 11:38 | Outpatient (AMB) | payer MEDICAID, SELFPAY ==
--- NOTE | 2024-12-20 11:44 | OBCLNT_ITS ---
Vital Signs 12/20/24 11:45 Height 1.42 m Height Method Stated Weight 90.435 kg Weight Measurement Method Standing Scale BMI 44.8 BP 102/67 Blood Pressure Source Automatic Cuff Blood Pressure Location Left Upper Arm Position Sitting Respiration 16 Pulse 106 H Pulse Source Monitor Temp 98 F Temp Source Oral Pulse Oximetry (%) 98 Oxygen Delivery Method Room Air Allergies/Home Meds Allergies & Medications Allergies No Known Allergies Allergy (Unknown, Verified 01/24/25 06:19) Medication Reconciliation vitamins with calcium no.72-iron 29 mg-folic acid 1 mg tablet ( Plus) 1 tab PO QDAY 90 days #90 tabs 07/08/24 [Rx Confirmed 01/24/25] Intake Visit Data Collection New Patient or Established: Established Patient (seen at [facility] within 3 years) Reason for Visit:: OBC Seen by Clinical Staff ONLY (RN/MA): No Medical Secretary Receptionist Required: No Do You Feel Safe at Home: Yes Authorities Contacted: N/A PCP or OBGYN visit in last 3 months: Yes Date of Last PCP or OBGYN visit: 12/04/24 Hx Now: Yes Are you currently on any form of Control: No Pain Present Currently: No Pain Scale Used: [place]/Numerical Pain scale:: 0 Smoking Status Smoking Status: Never smoker Questionnaires Covid-19 Vaccine Questionnaire Has patient been vacinated for Covid-19 Have you been vacinated for Covid-19: Yes PHQ-9 PHQ-2 Over the last 2 weeks, how often have you been bothered by any of the following problems? 1. Little interest or pleasure in doing things: not at all 2. Feeling down, depressed, or hopeless: not at all Total score: 0 PHQ-9 3. Trouble falling or staying asleep, or sleeping too much: Not at all 4. Feeling tired or having little energy: Not at all 5. Poor appetite or overeating: Not at all 6. Feeling bad about yourself - or that you are a failure or have let yourself or your family down: Not at all 7. Trouble concentrating on things, such as reading the newspaper or watching television: Not at all 8. Moving or speaking so slowly that other people could have noticed? - Or the opposite - being so fidgety or restless that you have been moving around a lot more than usual: not at all 9. Thoughts that you would be better off or of hurting yourself in some way: Not at all Total score: 0 If you checked off any problems, how difficult have these problems made it for you to do your work, take care of things at home, or get along with other people?: not difficult at all Source: Developed by Drs. Bill Mendoza, Milvia Goins, Itz Montero and colleagues, with an educational brea from [employer]. 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 improved with tylenol. light FM, no SAB complaintsc /o headache. improved with tylenol. Nausea most of the day comfort measure for nausea and head ache. Tylenol 2 tab q 6-8hr as needed for headache. increase protien, frequent meals.increase fluid. discuss SAB precaution. AFP NV, sched with MFM for anatomy scan. RTC 4 week 09/24/24 -?-?-?-?-?-?-?-?-?-?-?-?- 21w 4d 83.915 kg 100/66 absent unknown 20 145 active doing well. fetus active. no c/o uc,leaking,bleeding. c/o pelvic pain. reports new varicose vein R inner leg, inside near knee. no c/o phlebitis mfm scheduled for 09/26. discuss ptl precaution. comfort measure for varicose veins and pelvic pain. rtc 4 week. 3rd tri lab nv 10/21/24 -?-?-?-?-?-?-?-?-?-?-?-?- 25w 3d 85.899 kg 100/62 absent unknown 25 145 active Patient for unscheduled visit today. Complains of feeling balls in the vaginal perineal area. Patient states that the lumps seem to disappear when she is lying down. And increase when she stands up. The lumps are not painful. Patient has on examination a large area increased varicosities. Nontender to touch. No phlebitis noted and not swelling. Perineal area is clean no lesions. When patient stands there is a fullness in both labia however labia is soft and nontender to palpation. There is a increased varicosity near the clitoris. And I felt like in the right groin area lymph node. Vagina is red and swollen. Increased white clumpy discharge. And slight odor. Fetus is active. Increase rest. Elevate hips. Try to limit standing or sitting in 1 position. I discussed perineal support and comfort measures. New swab today. 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 Third trimester labs were ordered. Patient referred to OB for previous management 11/21/24 -?-?-?-?-?-?-?-?-?-?-?-?- 29w 6d 89.358 kg 97/62 absent unknown 30 146 active - Tabitha Vicente is a 4 para 3 patient at 29 weeks and 6 days gestation, with a history of previous , presenting for a visit. - Patient reports experiencing cramps (n o further details provided). - She mentions having varicose veins. - Patient expresses interest in explorin g the possibility of a vaginal after (). Plan - Schedule date (to be determi zoe) - Follow up in 2 weeks - Recommend pressure stockings for varic ose veins - Provided option to transfer care to [facility] for possibility - Suggested patient call [place] office [place] and [facility] office in [place] to inquire about transfer for - Offered to transfer medical records if patient finds a provider willing to a ccept transfer 12/04/24 -?-?-?-?-?-?-?-?-?-?-?-?- 31w 5d 89.981 kg 92/89 absent unknown 32 155 - Patient was hospitalized last week for feeling unwell and was diagnosed with dehydration. - She experienced difficulty breathing and pain on her sides during that episode. - Ultrasound was performed during hosp italization and baby was reported to be okay. - She continues to experience difficulty breathing, describing feeling like she can't breathe. - Patient reports ongoing pain on her si juanjose extending all the way to the bottom. - She is currently exploring option s and was previously advised to contact her primary OB for referral. Kalli n - Follow up in 2 weeks - Consider scheduling as backu p plan - Monitor for signs of labor: co ntractions, water breaking, or bleeding - Advised to seek transfer of care befor e 34 weeks if considering - Manage discomfort: - For kidney pain and pressure symptom s, try positional changes - Symptoms likely to persist until del maxwell due to uterine compression on ureters - Scheduled at 39 weeks if no spontaneous labor occurs 12/20/24 -?-?-?-?-?-?-?-?-?-?-?-?- 34w 0d 90.435 kg 102/67 absent breech 34 145 - She reports intermittent contractions described as here and there. - Patient has been experiencing persiste nt back pain and discomfort attributed to her advanced gestational status. - She had flank pain/side pain that has been improving since last visit. - Baby remains active with movements fel t primarily in upper abdomen and lower abdomen areas. - Patient went to [facility] yest erday for repeat ultrasound without notifying the office. - She reports feeling pressure and stret ch, which may be related to increased amniotic fluid levels. - Patient has a backup sched ed for 39 weeks (January 24). - She was informed at yesterday's ultras ound that the baby has a small hole in the heart and was advised to have pediatric follow-up after delivery. 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 - Patient is scheduled for repeat dayna an section on January 24 at 7:30 AM. - Patient reports plans to travel to [facility] for a weekend trip, leaving Monday and returning Monday. - Patient denies any current complaints or concerns during this vis it. - Repeat section scheduled for January 24 at 7:30 AM - Group B Streptococcus (GBS) culture to be performed (patient instructed on self-collection technique) - Follow-up appointment in one week - Patient cleared for travel to [facility] with recommendations for frequent breaks, hydration, and leg movement to prevent thrombosis 01/09/25 -?-?-?-?-?-?-?-?-?-?-?-?- 36w 6d 93.497 kg 95/59 absent unknown 37 145 - Tabitha Vicente presents for a visit at 36 weeks and 6 days gestation with a scheduled repeat section on January 24. - She reports redness on her legs that i s not itchy but occurs from the bottom portion of her legs. - She notes getting very hot sometimes when this redness appears. - She observes white spots that appear whenever the flushing happens. - The redness is only present on the e xposed parts of her body and does not involve her trunk or stomach. - She denies any itching associated with the leg redness. - She is developing varicose veins on one leg but not the other ben e. - Repeat section scheduled for January 24 - Ultrasound to be performed tomorrow mo rning at Labor and Delivery, 4th floor of [facility] - If leg rash becomes itchy, take Benadr yl - Elevate legs on pillow while sleeping at night for varicose veins - Follow-up appointment scheduled for week before section - If any issues arise, present to [facility] for evaluation 01/22/25 -?-?-?-?-?-?-?-?-?-?-?-?- 38w 5d 94.461 kg 106/70 absent unknown 38 155 - She reports itching in the exposed parts of her leg. - The itching appears to be related to a rash consistent with possible contact dermatitis. - She has been prescribed prednisone for this condition. - Scheduled on 2024 at 7:30 AM - Check-in at 5:30 AM on day of surgery - Fasting after 10 PM the night before s ambreenery - Prescribed prednisone for contact derm atitis with itching on exposed parts of leg TESSA Calculator Estimated Delivery Date Method Current WG Current Estimate 01/31/25 LMP (Certain) 39w 0d Other Estimates 01/16/25 Ultrasound #1 41w 1d 01/31/25 Manual 39w 0d Confirmed by LM P c/w 3rd trimester ultrasound Notes Visit Date: 11/21/24 Last Updated by: Willi Bueno MD - CBC: Hemoglobin 11.7 g/dL, Platelets 182 - Hemoglobin A1c: 4.9% - Glucose: 100 mg/dL, 107 mg/dL - Rp (Rapid plasma reagin): Non-reactive Visit Date: 09/24/24 Last Updated by: Muriel Davis CNM LMP: 04/26/24. EDC 01/31/25. OB panel: O+,abs-, rpr;;nr, rub imm, hbsag-, hiv-, HC-, GC/CT-, NIPT-/female, sma/cf- Office Procedures OBC Clinic LOC & Office Proc's Nursing/Assessment Patient Status: Established Patient OB Clinic Nursing Assessment: Medication Reconciliation, Update PMH in EMR and Vital Signs OB Clinic Coordination of Care: Consent,records obtained, informed consent, Education Simp Pt/Fam, Lab and Imaging orders, Results/Orders obtained and Staff clarify orders Special Needs: Heart tones Established Patient Charge Established Patient Point Assignment: 110 Established Patient Point Charge: EP Level 3 (80-115) Assessment & Plan Diagnosis / Problem List (1) Encounter for maternal care for low transverse scar from previous delivery: Status: Acute Plan Problem List - , 34 weeks gestation - Breech presentation - Polyhydramnios - macrosomia - ventricular septal defect - History of section Assessment at 34 weeks 0 days gestation, presenting for routine visit. Fetus in breech presentation confirmed by recent M ultrasound. Polyhydramnios noted with ITZEL of 23.69 cm. Estimated weight 6 pounds 3 ounces, 93rd percentile. Small muscular ventricular septal defect (VSD) identified on echocardiogram. Patient reports intermittent contractions and persistent back pain, likely due to advanced gestational status and increased amniotic fluid volume. heart rate auscultated at 155 bpm, within normal limits. History of previous section, with patient considering . 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 Progress Reviewed gestational age (34 weeks 0 days), growth (6 pounds 3 ounces, 93rd percentile), and heart rate (155 bpm, normal). Planned frequent visits (every 2 weeks until 36 weeks, then weekly). 2. Instructed patient to monitor movements and report decreases immediatel y. 3. Testing Counseled on routine third-trimester labs per guidelines including GBS testing at next visit. Discussed potential need for ultrasound or monitoring based on risk factors including breech presentation and polyhydramnios. 4. Preeclampsia Precaution Educated on preeclampsia signs: severe headache, vision changes, right upper quadrant pain, sudden swelling. Advised urgent reporting of symptoms and discussed blood pressure monitoring if high risk. 5. Labor Precautions Reviewed labor signs: regular contractions, pelvic pressure, back pain, bleeding, or fluid leakage. Instructed to seek immediate care for these symptoms. 6. Lifestyle and Delivery Preparation Reinforced vitamins, nutrition, and safe activity. Discussed plan including scheduled at 39 weeks due to breech presentation and history of prior , pain management, and . Advised on labor preparation (e.g., hospital bag) and expectations including pediatric cardiology follow-up for small muscular VSD. 7. Psychosocial Support Assessed emotional well-being and offered resources for mental health or parenting support.
[2024-12-20 11:45] VITALS: BP 102/67; PULSE 106; RESP 16; TEMP 36.6; O2SAT 98; BMI 44.8
== END 2024-12-20 12:07 | disposition home or self-care (01) ==
LOC: HODSOBC 11:38
PROVIDERS: Supervising Provider Obstetrics & Gynecology; Visit Provider Obstetrics & Gynecology
DX: O09.293 Supervision of pregnancy with other poor reproductive or obstetric history, third trimester (principal); O34.211 Maternal care for low transverse scar from previous cesarean delivery; O09.893 Supervision of other high risk pregnancies, third trimester; O32.1XX0 Maternal care for breech presentation, not applicable or unspecified; O40.3XX0 Polyhydramnios, third trimester, not applicable or unspecified; O35.BXX0 Maternal care for other (suspected) fetal abnormality and damage, fetal cardiac anomalies, not applicable or unspecified; Z3A.34 34 weeks gestation of pregnancy
CPT/HCPCS: 99213; G0463

== ENCOUNTER 2025-01-01 10:04 | Outpatient (AMB) | payer MEDICAID, SELFPAY ==
[2025-01-01 10:15] VITALS: BP 94/60; PULSE 98; RESP 18; TEMP 36.5; O2SAT 97; BMI 45.9
--- NOTE | 2025-01-01 10:15 | OBCLNT_ITS ---
Vital Signs 01/01/25 10:15 Height 1.42 m Height Method Stated Weight 92.59 kg Weight Measurement Method Standing Scale BMI 45.9 BP 94/60 Blood Pressure Source Automatic Cuff Blood Pressure Location Left Upper Arm Position Sitting Respiration 18 Pulse 98 Pulse Source Monitor Temp 97.7 F Temp Source Oral Pulse Oximetry (%) 97 Oxygen Delivery Method Room Air Allergies/Home Meds Allergies & Medications Allergies No Known Allergies Allergy (Unknown, Verified 01/24/25 06:19) Medication Reconciliation vitamins with calcium no.72-iron 29 mg-folic acid 1 mg tablet ( Plus) 1 tab PO QDAY 90 days #90 tabs 07/08/24 [Rx Confirmed 01/24/25] Intake Visit Data Collection New Patient or Established: Established Patient (seen at [facility] within 3 years) Reason for Visit:: CARE Seen by Clinical Staff ONLY (RN/MA): No Try On Baster Required: No Do You Feel Safe at Home: Yes Authorities Contacted: N/A PCP or OBGYN visit in last 3 months: Yes Hx Now: Yes Are you currently on any form of Control: No Pain Present Currently: No Pain Scale Used: [place]/Numerical Pain scale:: 0 Smoking Status Smoking Status: Never smoker Immunizations Flu Vaccine in the Last 12 Months: No Questionnaires Covid-19 Vaccine Questionnaire Has patient been vacinated for Covid-19 Have you been vacinated for Covid-19: Yes PHQ-9 PHQ-2 Over the last 2 weeks, how often have you been bothered by any of the following problems? 1. Little interest or pleasure in doing things: not at all 2. Feeling down, depressed, or hopeless: not at all Total score: 0 PHQ-9 3. Trouble falling or staying asleep, or sleeping too much: Not at all 4. Feeling tired or having little energy: Not at all 5. Poor appetite or overeating: Not at all 6. Feeling bad about yourself - or that you are a failure or have let yourself or your family down: Not at all 7. Trouble concentrating on things, such as reading the newspaper or watching television: Not at all 8. Moving or speaking so slowly that other people could have noticed? - Or the opposite - being so fidgety or restless that you have been moving around a lot more than usual: not at all 9. Thoughts that you would be better off or of hurting yourself in some way: Not at all Total score: 0 Source: Developed by Drs. Bill Mendoza, Milvia Goins, Itz Montero and colleagues, with an educational brea from [employer]. 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 improved with tylenol. light FM, no SAB complaintsc /o headache. improved with tylenol. Nausea most of the day comfort measure for nausea and head ache. Tylenol 2 tab q 6-8hr as needed for headache. increase protien, frequent meals.increase fluid. discuss SAB precaution. AFP NV, sched with MFM for anatomy scan. RTC 4 week 09/24/24 -?-?-?-?-?-?-?-?-?-?--?-?- 21w 4d 83.915 kg 100/66 absent unknown 20 145 active doing well. fetus active. no c/o uc,leaking,bleeding. c/o pelvic pain. reports new varicose vein R inner leg, inside near knee. no c/o phlebitis mfm scheduled for 09/26. discuss ptl precaution. comfort measure for varicose veins and pelvic pain. rtc 4 week. 3rd tri lab nv 10/21/24 -?-?-?-?-?-?-?-?-?-?-?-?- 25w 3d 85.899 kg 100/62 absent unknown 25 145 active Patient for unscheduled visit today. Complains of feeling balls in the vaginal perineal area. Patient states that the lumps seem to disappear when she is lying down. And increase when she stands up. The lumps are not painful. Patient has on examination a large area increased varicosities. Nontender to touch. No phlebitis noted and not swelling. Perineal area is clean no lesions. When patient stands there is a fullness in both labia however labia is soft and nontender to palpation. There is a increased varicosity near the clitoris. And I felt like in the right groin area lymph node. Vagina is red and swollen. Increased white clumpy discharge. And slight odor. Fetus is active. Increase rest. Elevate hips. Try to limit standing or sitting in 1 position. I discussed perineal support and comfort measures. New swab today. 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 Third trimester labs were ordered. Patient referred to OB for previous management 11/21/24 -?-?-?-?-?-?-?-?-?-?-?-?- 29w 6d 89.358 kg 97/62 absent unknown 30 146 active - Tabitha Vicente is a 4 para 3 patient at 29 weeks and 6 days gestation, with a history of previous , presenting for a visit. - Patient reports experiencing cramps (n o further details provided). - She mentions having varicose veins. - Patient expresses interest in explorin g the possibility of a vaginal after (). Plan - Schedule date (to be determi zoe) - Follow up in 2 weeks - Recommend pressure stockings for varic ose veins - Provided option to transfer care to [facility] for possibility - Suggested patient call [place] office fahad Fitzpatrick and [facility] office in [place] to inquire about transfer for - Offered to transfer medical records if patient finds a provider willing to accept transfer 12/04/24 -?-?-?-?-?-?-?-?-?-?-?-?- 31w 5d 89.981 kg 92/89 absent unknown 32 155 - Patient was hospitalized last week for feeling unwell and was diagnosed with dehydration. - She experienced difficulty breathing and pain on her sides during that episode. - Ultrasound was performed during hosp italization and baby was reported to be okay. - She continues to experience difficulty breathing, describing feeling like she can't breathe. - Patient reports ongoing pain on her si juanjose extending all the way to the bottom. - She is currently exploring option s and was previously advised to contact her primary OB for referral. Kalli n - Follow up in 2 weeks - Consider scheduling as backu p plan - Monitor for signs of labor: co ntractions, water breaking, or bleeding - Advised to seek transfer of care befor e 34 weeks if considering - Manage discomfort: - For kidney pain and pressure symptom s, try positional changes - Symptoms likely to persist until del maxwell due to uterine compression on ureters - Scheduled at 39 weeks if no spontaneous labor occurs 01/01/25 -?-?-?-?-?-?-?-?-?-?-?-?- 35w 5d 92.59 kg 94/60 absent unknown 36 155 - Patient had MFM ultrasound on 12-19-2024 showing estimated weight of 2794 grams (6 pounds 3 ounces) at 35 weeks, which is 97th percentile. - Patient is scheduled for repeat dayna an section on January 24 at 7:30 AM. - Patient reports plans to travel to [facility] for a weekend trip, leaving Monday and returning Monday. - Patient denies any current complaints or concerns during this vis it. - Repeat section scheduled for January 24 at 7:30 AM - Group B Streptococcus (GBS) culture to be performed (patient instructed on self-collection technique) - Follow-up appointment in one week - Patient cleared for travel to [facility] with recommendations for frequent breaks, hydration, and leg movement to prevent thrombosis 01/09/25 -?-?-?-?-?-?-?-?-?-?-?-?- 36w 6d 93.497 kg 95/59 absent unknown 37 145 - Tabitha Vicente presents for a visit at 36 weeks and 6 days gestation with a scheduled repeat section on January 24. - She reports redness on her legs that i s not itchy but occurs from the bottom portion of her legs. - She notes getting very hot sometimes when this redness appears. - She observes white spots that appear whenever the flushing happens. - The redness is only present on the e xposed parts of her body and does not involve her trunk or stomach. - She denies any itching associated with the leg redness. - She is developing varicose veins on one leg but not the other ben e. - Repeat section scheduled for January 24 - Ultrasound to be performed tomorrow mo rning at Labor and Delivery, 4th floor of [facility] - If leg rash becomes itchy, take Benadr yl - Elevate legs on pillow while sleeping at night for varicose veins - Follow-up appointment scheduled for week before section - If any issues arise, present to [facility] for evaluation 01/22/25 -?-?-?-?-?-?-?-?-?-?-?-?- 38w 5d 94.461 kg 106/70 absent unknown 38 155 - She reports itching in the exposed parts of her leg. - The itching appears to be related to a rash consistent with possible contact dermatitis. - She has been prescribed prednisone for this condition. - Scheduled on 2024 at 7:30 AM - Check-in at 5:30 AM on day of surgery - Fasting after 10 PM the night before s urgery - Prescribed prednisone for contact derm atitis with itching on exposed parts of leg TESSA Calculator Estimated Delivery Date Method Current WG Current Estimate 01/31/25 LMP (Certain) 39w 0d Other Estimates 01/16/25 Ultrasound #1 41w 1d 01/31/25 Manual 39w 0d Confirmed by LM P c/w 3rd trimester ultrasound Notes Visit Date: 11/21/24 Last Updated by: Willi Bueno MD - CBC: Hemoglobin 11.7 g/dL, Platelets 182 - Hemoglobin A1c: 4.9% - Glucose: 100 mg/dL, 107 mg/dL - Rp (Rapid plasma reagin): Non-reactive Visit Date: 09/24/24 Last Updated by: Muriel Davis CNM LMP: 04/26/24. EDC 01/31/25. OB panel: O+,abs-, rpr;;nr, rub imm, hbsag-, hiv-, HC-, GC/CT-, NIPT-/female, sma/cf- Office Procedures OBC Clinic LOC & Office Proc's Nursing/Assessment Patient Status: Established Patient OB Clinic Nursing Assessment: Medication Reconciliation, Update PMH in EMR and Vital Signs OB Clinic Coordination of Care: Complex Care and Chronic Disease 1-5, Consent,records obtained, informed consent, Education Simp Pt/Fam, 1 Ins Authorization, Lab and Imaging orders, Results/Orders obtained and Staff clarify orders Special Needs: Heart tones Miscellaneous Interventions: Culture Specimen Collection Established Patient Charge Established Patient Point Assignment: 165 Established Patient Point Charge: EP Level 5 (160-above) Assessment & Plan Diagnosis / Problem List (1) Encounter for maternal care for low transverse scar from previous delivery: Status: Acute Plan Problem List - at 35 weeks and 5 days gestation - macrosomia (estimated weight 97th percentile) - Muscular ventricular septal defect - Breech presentation - History of delivery Assessment 29-year-old at 35 weeks and 5 days gestation with macrosomia (estimated weight 2794 grams at 35 weeks, 97th percentile), breech presentation, and muscular ventricular septal defect noted on maternal- medicine ultrasound. Patient has scheduled repeat section. Normal amniotic fluid index and heart rate of 143-147 beats per minute documented. Anterior placenta with normal uterus and adnexa noted on imaging. Plan - Repeat section scheduled for January 24 at 7:30 AM - Group B Streptococcus (GBS) culture to be performed (patient instructed on self-collection technique) - Follow-up appointment in one week - Patient cleared for travel to [place] with recommendations for frequent breaks, hydration, and leg movement to prevent thrombosis 1. Progress Reviewed gestational age (35 weeks 5 days), growth (EFW 2794 grams, 97th percentile), and heart rate (147-143 bpm, normal). Planned frequent visits (weekly until delivery scheduled for 01/24). 2. Instructed patient to monitor movements and report decreases immediately. 3. Testing Counseled on routine third-trimester labs per guidelines (GBS culture performed). Discussed potential need for ultrasound or monitoring based on risk factors. 4. Preeclampsia Precaution Educated on preeclampsia signs: severe headache, vision changes, right upper quadrant pain, sudden swelling. Advised urgent reporting of symptoms and discussed blood pressure monitoring if high risk. 5. Labor Precautions Reviewed labor signs: regular contractions, pelvic pressure, back pain, bleeding, or fluid leakage. Instructed to seek immediate care for these symptoms. 6. Lifestyle and Delivery Preparation Reinforced vitamins, nutrition, and safe activity. Counseled on travel safety (hydration, frequent breaks, leg movement to prevent clots). Discussed plan (scheduled repeat 01/24 at 7:30 AM), pain management, and . Advised on labor preparation (e.g., hospital bag) and expectations. 7. Psychosocial Support Assessed emotional well-being and offered resources for mental health or parenting support.
== END 2025-01-01 10:34 | disposition home or self-care (01) ==
LOC: HODSOBC 10:04
PROVIDERS: Supervising Provider Obstetrics & Gynecology; Visit Provider Obstetrics & Gynecology
DX: O09.293 Supervision of pregnancy with other poor reproductive or obstetric history, third trimester (principal); O34.211 Maternal care for low transverse scar from previous cesarean delivery; O09.893 Supervision of other high risk pregnancies, third trimester; O36.63X0 Maternal care for excessive fetal growth, third trimester, not applicable or unspecified; O32.1XX0 Maternal care for breech presentation, not applicable or unspecified; O35.BXX0 Maternal care for other (suspected) fetal abnormality and damage, fetal cardiac anomalies, not applicable or unspecified; Z3A.35 35 weeks gestation of pregnancy
CPT/HCPCS: 99215; G0463

== ENCOUNTER 2025-01-09 15:22 | Outpatient (AMB) | payer MEDICAID, SELFPAY ==
--- NOTE | 2025-01-09 15:34 | OBCLNT_ITS ---
Vital Signs 01/09/25 15:35 Height 1.42 m Height Method Stated Weight 93.497 kg Weight Measurement Method Standing Scale BMI 46.3 BP 95/59 L Blood Pressure Source Automatic Cuff Blood Pressure Location Left Upper Arm Position Sitting Respiration 18 Pulse 92 Pulse Source Monitor Temp 97 F Temp Source Oral Pulse Oximetry (%) 95 Oxygen Delivery Method Room Air Allergies/Home Meds Allergies & Medications Allergies No Known Allergies Allergy (Unknown, Verified 01/09/25 15:40) Medication Reconciliation vitamins with calcium no.72-iron 29 mg-folic acid 1 mg tablet ( Plus) 1 tab PO QDAY 90 days #90 tabs 07/08/24 [Rx Confirmed 01/09/25] Intake Visit Data Collection New Patient or Established: Established Patient (seen at [facility] within 3 years) Reason for Visit:: CARE/ GBS RESULTS Seen by Clinical Staff ONLY (RN/MA): No Independent Video Producer Required: No Do You Feel Safe at Home: Yes Authorities Contacted: N/A PCP or OBGYN visit in last 3 months: Yes Hx Now: Yes Are you currently on any form of Control: No Pain Present Currently: No Pain Scale Used: [place]/Numerical Pain scale:: 0 Smoking Status Smoking Status: Never smoker Immunizations Flu Vaccine in the Last 12 Months: Yes Flu Vaccine Exclusion Criteria: Already Received Questionnaires Covid-19 Vaccine Questionnaire Has patient been vacinated for Covid-19 Have you been vacinated for Covid-19: Yes PHQ-9 PHQ-2 Over the last 2 weeks, how often have you been bothered by any of the following problems? 1. Little interest or pleasure in doing things: not at all 2. Feeling down, depressed, or hopeless: not at all Total score: 0 PHQ-9 3. Trouble falling or staying asleep, or sleeping too much: Not at all 4. Feeling tired or having little energy: Not at all 5. Poor appetite or overeating: Not at all 6. Feeling bad about yourself - or that you are a failure or have let yourself or your family down: Not at all 7. Trouble concentrating on things, such as reading the newspaper or watching television: Not at all 8. Moving or speaking so slowly that other people could have noticed? - Or the opposite - being so fidgety or restless that you have been moving around a lot more than usual: not at all 9. Thoughts that you would be better off or of hurting yourself in some way: Not at all Total score: 0 Source: Developed by Drs. Bill Mendoza, Milvia Goins, Itz Montero and colleagues, with an educational brea from [employer]. 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 improved with tylenol. light FM, no SAB complaintsc /o headache. improved with tylenol. Nausea most of the day comfort measure for nausea and head ache. Tylenol 2 tab q 6-8hr as needed for headache. increase protien, frequent meals.increase fluid. discuss SAB precaution. AFP NV, sched with MFM for anatomy scan. RTC 4 week 09/24/24 -?-?-?-?-?-?-?-?-?-?-?-?- 21w 4d 83.915 kg 100/66 absent unknown 20 145 active doing well. fetus active. no c/o uc,leaking,bleeding. c/o pelvic pain. reports new varicose vein R inner leg, inside near knee. no c/o phlebitis mfm scheduled for 09/26. discuss ptl precaution. comfort measure for varicose veins and pelvic pain. rtc 4 week. 3rd tri lab nv 10/21/24 -?-?-?-?-?-?-?-?-?-?-?-?- 25w 3d 85.899 kg 100/62 absent unknown 25 145 active Patient for unscheduled visit today. Complains of feeling balls in the vaginal perineal area. Patient states that the lumps seem to disappear when she is lying down. And increase when she stands up. The lumps are not painful. Patient has on examination a large area increased varicosities. Nontender to touch. No phlebitis noted and not swelling. Perineal area is clean no lesions. When patient stands there is a fullness in both labia however labia is soft and nontender to palpation. There is a increased varicosity near the clitoris. And I felt like in the right groin area lymph node. Vagina is red and swollen. Increased white clumpy discharge. And slight odor. Fetus is active. Increase rest. Elevate hips. Try to limit standing or sitting in 1 position. I discussed perineal support and comfort measures. New swab today. 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 Third trimester labs were ordered. Patient referred to OB for previous management 11/21/24 -?-?-?-?-?-?-?-?-?-?-?-?- 29w 6d 89.358 kg 97/62 absent unknown 30 146 active - Tabitha Vicente is a 4 para 3 patient at 29 weeks and 6 days gestation, with a history of previous , presenting for a visit. - Patient reports experiencing cramps (n o further details provided). - She mentions having varicose veins. - Patient expresses interest in explorin g the possibility of a vaginal after (). Plan - Schedule date (to be determi zoe) - Follow up in 2 weeks - Recommend pressure stockings for varic ose veins - Provided option to transfer care to [facility] for possibility - Suggested patient call [place] office fahad Fitzpatrick and [facility] office in [place] to inquire about transfer for - Offered to transfer medical records if patient finds a provider willing to accept transfer 12/04/24 -?-?-?-?-?-?-?-?-?-?-?-?- 31w 5d 89.981 kg 92/89 absent unknown 32 155 - Patient was hospitalized last week for feeling unwell and was diagnosed with dehydration. - She experienced difficulty breathing and pain on her sides during that episode. - Ultrasound was performed during hosp italization and baby was reported to be okay. - She continues to experience difficulty breathing, describing feeling like she can't breathe. - Patient reports ongoing pain on her si juanjose extending all the way to the bottom. - She is currently exploring option s and was previously advised to contact her primary OB for referral. Kalli n - Follow up in 2 weeks - Consider scheduling as backu p plan - Monitor for signs of labor: co ntractions, water breaking, or bleeding - Advised to seek transfer of care befor e 34 weeks if considering - Manage discomfort: - For kidney pain and pressure symptom s, try positional changes - Symptoms likely to persist until del maxwell due to uterine compression on ureters - Scheduled at 39 weeks if no spontaneous labor occurs 01/09/25 -?-?-?-?-?-?-?-?-?-?-?-?- 36w 6d 93.497 kg 95/59 absent unknown 37 145 - Tabitha Vicente presents for a visit at 36 weeks and 6 days gestation with a scheduled repeat section on January 24. - She reports redness on her legs that i s not itchy but occurs from the bottom portion of her legs. - She notes getting very hot sometimes when this redness appears. - She observes white spots that appear whenever the flushing happens. - The redness is only present on the e xposed parts of her body and does not involve her trunk or stomach. - She denies any itching associated with the leg redness. - She is developing varicose veins on one leg but not the other ben e. - Repeat section scheduled for January 24 - Ultrasound to be performed tomorrow mo rning at Labor and Delivery, 4th floor of [facility] - If leg rash becomes itchy, take Benadr yl - Elevate legs on pillow while sleeping at night for varicose veins - Follow-up appointment scheduled for e week before section - If any issues arise, present [facility] TESSA Calculator Estimated Delivery Date Method Current WG Current Estimate 01/31/25 LMP (Certain) 36w 6d Notes Visit Date: 11/21/24 Last Updated by: Willi Bueno MD - CBC: Hemoglobin 11.7 g/dL, Platelets 182 - Hemoglobin A1c: 4.9% - Glucose: 100 mg/dL, 107 mg/dL - Rp (Rapid plasma reagin): Non-reactive Visit Date: 09/24/24 Last Updated by: Muriel Davis CNM LMP: 04/26/24. EDC 01/31/25. OB panel: O+,abs-, rpr;;nr, rub imm, hbsag-, h iv-, HC-, GC/CT-, NIPT-/female, sma/cf- Office Procedures OBC Clinic LOC & Office Proc's Nursing/Assessment Patient Status: Established Patient OB Clinic Nursing Assessment: Medication Reconciliation, Update PMH in EMR and Vital Signs OB Clinic Coordination of Care: Complex Care and Chronic Disease 1-5, Consent,records obtained, informed consent, Education Simp Pt/Fam, 1 Ins Authorization, Lab and Imaging orders, Results/Orders obtained and Staff clarify orders Special Needs: Heart tones Established Patient Charge Established Patient Point Assignment: 150 Established Patient Point Charge: EP Level 4 (120-155) Assessment & Plan Diagnosis / Problem List (1) Encounter for maternal care for low transverse scar from previous delivery: Status: Acute (2) High risk for intrapartum complications in second trimester: Status: Acute Plan Problem List - Contact dermatitis - Varicose veins Assessment 36 weeks and 6 days gestation with scheduled repeat section on January 24. Group B Streptococcus culture from previous visit is negative. Patient presents with erythematous rash on lower extremities without pruritus, appearing to be contact dermatitis from environmental or chemical exposure, with areas of hypopigmentation noted during flushing episodes. Developing varicose veins observed on one lower extremity. heart rate is 150 beats per minute, which is within normal limits. Plan - Repeat section scheduled for January 24 - Ultrasound to be performed tomorrow morning at Labor and Delivery, 4th floor of [facility] - If leg rash becomes itchy, take Benadryl - Elevate legs on pillow while sleeping at night for varicose veins - Follow-up appointment scheduled for the week before section - If any issues arise, present to hospital for evaluation 1. Progress Reviewed gestational age (36 weeks 6 days), growth, and heart rate (150 bpm, normal). Planned frequent visits (every 2 weeks until 36 weeks, then weekly). 2. Instructed patient to monitor movements and report decreases immediately. 3. Testing Counseled on routine third-trimester labs per guidelines. GBS culture completed and negative. Discussed potential need for ultrasound or monitoring based on risk factors. Ultrasound scheduled for tomorrow morning at Labor and Delivery. 4. Preeclampsia Precaution Educated on preeclampsia signs: severe headache, vision changes, right upper quadrant pain, sudden swelling. Advised urgent reporting of symptoms and discussed blood pressure monitoring if high risk. 5. Labor Precautions Reviewed labor signs: regular contractions, pelvic pressure, back pain, bleeding, or fluid leakage. Instructed to seek immediate care for these symptoms. 6. Lifestyle and Delivery Preparation Reinforced vitamins, nutrition, and safe activity. Discussed plan, pain management, and . Repeat section scheduled for January 24. Advised on labor preparation (e.g., hospital bag) and expectations. 7. Psychosocial Support Assessed emotional well-being and offered resources for mental health or parenting support.
[2025-01-09 15:35] VITALS: BP 95/59; PULSE 92; RESP 18; TEMP 36.1; O2SAT 95; BMI 46.3
== END 2025-01-09 15:53 | disposition home or self-care (01) ==
LOC: HODSOBC 15:22
PROVIDERS: Supervising Provider Obstetrics & Gynecology; Visit Provider Obstetrics & Gynecology
DX: O09.293 Supervision of pregnancy with other poor reproductive or obstetric history, third trimester (principal); O34.211 Maternal care for low transverse scar from previous cesarean delivery; O09.893 Supervision of other high risk pregnancies, third trimester; O22.03 Varicose veins of lower extremity in pregnancy, third trimester; I83.811 Varicose veins of right lower extremity with pain; O22.13 Genital varices in pregnancy, third trimester; O99.713 Diseases of the skin and subcutaneous tissue complicating pregnancy, third trimester; L25.9 Unspecified contact dermatitis, unspecified cause; Z3A.36 36 weeks gestation of pregnancy
CPT/HCPCS: 99214; G0463

== ENCOUNTER 2025-01-10 12:41 | Outpatient (CLI) | payer MEDICAID, SELFPAY ==
[2025-01-10 12:56] VITALS: BP 98/50; PULSE 98; RESP 18; RESP 98; TEMP 36.9; O2SAT 98
[2025-01-10 13:01] VITALS: BMI 33.2
--- NOTE | 2025-01-10 13:01 | XR_ITS ---
Examination: Complete OB ultrasound greater than 14 weeks Date and time of exam: January 10, 2025, 1342 hours INDICATIONS: Supervision otherwise normal Findings: Viable intrauterine single fetus with single amniotic sac presentation cephalic spine maternal right Cardiac motion 136 bpm Placenta anterior grade 2 Medical cord insertion seen Amniotic fluid index 17.6 cm Cervix 3.8 cm Ovaries obscured by the gestation. Composite estimated gestational age based on BPD, head circumference, abdominal circumference, femur length is 38 weeks 0 days Estimated weight 3508 g. Survey of intracranial anatomy, spinal anatomy, abdominal anatomy, four-chamber heart performed with no abnormalities identified. Impression: Viable intrauterine gestation in cephalic presentation.
[2025-01-10 13:02] VITALS: PULSE 106; O2SAT 95
[2025-01-10 13:07] VITALS: PULSE 101; O2SAT 96
[2025-01-10 13:12] VITALS: PULSE 100; O2SAT 96
[2025-01-10 13:17] VITALS: PULSE 103; O2SAT 98
[2025-01-10 13:22] VITALS: PULSE 103; O2SAT 97
--- NOTE | 2025-01-10 15:21 | PC.NURSE ---
1455 discharge instructions reviewed, labor precautions, kick counts copy given, pt agrees/understands.
== END 2025-01-10 14:55 | disposition home or self-care (01) ==
LOC: S4S1 12:44 → S4SX 12:45
PROVIDERS: Referring Provider Obstetrics & Gynecology; Visit Provider Obstetrics & Gynecology
DX: Z34.83 Encounter for supervision of other normal pregnancy, third trimester (principal); Z36.9 Encounter for antenatal screening, unspecified; Z3A.37 37 weeks gestation of pregnancy
CPT/HCPCS: 59025; 76805

== ENCOUNTER 2025-01-22 10:43 | Outpatient (AMB) | payer MEDICAID, SELFPAY ==
--- NOTE | 2025-01-22 10:52 | OBCLNT_ITS ---
Vital Signs 01/22/25 10:53 Height 1.42 m Height Method Stated Weight 94.461 kg Weight Measurement Method Standing Scale BMI 46.8 BP 106/70 Blood Pressure Source Automatic Cuff Blood Pressure Location Left Upper Arm Position Sitting Respiration 18 Pulse 91 Pulse Source Monitor Temp 98.1 F Temp Source Oral Pulse Oximetry (%) 96 Oxygen Delivery Method Room Air Allergies/Home Meds Allergies & Medications Allergies No Known Allergies Allergy (Unknown, Verified 01/22/25 10:54) Medication Reconciliation vitamins with calcium no.72-iron 29 mg-folic acid 1 mg tablet ( Plus) 1 tab PO QDAY 90 days #90 tabs 07/08/24 [Rx Confirmed 01/22/25] Intake Visit Data Collection New Patient or Established: Established Patient (seen at [facility] within 3 years) Reason for Visit:: CARE Seen by Clinical Staff ONLY (RN/MA): No Community Facilitator Required: No Do You Feel Safe at Home: Yes Authorities Contacted: N/A PCP or OBGYN visit in last 3 months: Yes Hx Now: Yes Are you currently on any form of Control: No Pain Present Currently: No Pain Scale Used: [place]/Numerical Pain scale:: 0 Smoking Status Smoking Status: Never smoker Immunizations Flu Vaccine in the Last 12 Months: Yes Flu Vaccine Exclusion Criteria: Already Received Questionnaires Covid-19 Vaccine Questionnaire Has patient been vacinated for Covid-19 Have you been vacinated for Covid-19: Yes PHQ-9 PHQ-2 Over the last 2 weeks, how often have you been bothered by any of the following problems? 1. Little interest or pleasure in doing things: not at all 2. Feeling down, depressed, or hopeless: not at all Total score: 0 PHQ-9 3. Trouble falling or staying asleep, or sleeping too much: Not at all 4. Feeling tired or having little energy: Not at all 5. Poor appetite or overeating: Not at all 6. Feeling bad about yourself - or that you are a failure or have let yourself or your family down: Not at all 7. Trouble concentrating on things, such as reading the newspaper or watching television: Not at all 8. Moving or speaking so slowly that other people could have noticed? - Or the opposite - being so fidgety or restless that you have been moving around a lot more than usual: not at all 9. Thoughts that you would be better off or of hurting yourself in some way: Not at all Total score: 0 Source: Developed by Drs. Bill Mendoza, Milvia Goins, Itz Montero and colleagues, with an educational brea from [employer]. 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 improved with tylenol. light FM, no SAB complaintsc /o headache. improved with tylenol. Nausea most of the day comfort measure for nausea and head ache. Tylenol 2 tab q 6-8hr as needed for headache. increase protien, frequent meals.increase fluid. discuss SAB precaution. AFP NV, sched with MFM for anatomy scan. RTC 4 week 09/24/24 -?-?-?-?-?-?-?-?-?-?-?-?- 21w 4d 83.915 kg 100/66 absent unknown 20 145 active doing well. fetus active. no c/o uc,leaking,bleeding. c/o pelvic pain. reports new varicose vein R inner leg, inside near knee. no c/o phlebitis mfm scheduled for 09/26. discuss ptl precaution. comfort measure for varicose veins and pelvic pain. rtc 4 week. 3rd tri lab nv 10/21/24 -?-?-?-?-?-?-?-?-?-?-?-?- 25w 3d 85.899 kg 100/62 absent unknown 25 145 active Patient for unscheduled visit today. Complains of feeling balls in the vaginal perineal area. Patient states that the lumps seem to disappear when she is lying down. And increase when she stands up. The lumps are not painful. Patient has on examination a large area increased varicosities. Nontender to touch. No phlebitis noted and not swelling. Perineal area is clean no lesions. When patient stands there is a fullness in both labia however labia is soft and nontender to palpation. There is a increased varicosity near the clitoris. And I felt like in the right groin area lymph node. Vagina is red and swollen. Increased white clumpy discharge. And slight odor. Fetus is active. Increase rest. Elevate hips. Try to limit standing or sitting in 1 position. I discussed perineal support and comfort measures. New swab today. 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 Third trimester labs were ordered. Patient referred to OB for previous management 11/21/24 -?-?-?-?-?-?-?-?-?-?-?-?- 29w 6d 89.358 kg 97/62 absent unknown 30 146 active - Tabitha Vicente is a 4 para 3 patient at 29 weeks and 6 days gestation, with a history of previous , presenting for a visit. - Patient reports experiencing cramps (n o further details provided). - She mentions having varicose veins. - Patient expresses interest in explorin g the possibility of a vaginal after (). Plan - Schedule date (to be determi zoe) - Follow up in 2 weeks - Recommend pressure stockings for varic ose veins - Provided option to transfer care to [facility] for possibility - Suggested patient call [place] office fahad Fitzpatrick and [facility] office in [place] to inquire about transfer for - Offered to transfer medical records if patient finds a provider willing to accept transfer 12/04/24 -?-?-?-?-?-?-?-?-?-?-?-?- 31w 5d 89.981 kg 92/89 absent unknown 32 155 - Patient was hospitalized last week for feeling unwell and was diagnosed with dehydration. - She experienced difficulty breathing and pain on her sides during that episode. - Ultrasound was performed during hosp italization and baby was reported to be okay. - She continues to experience difficulty breathing, describing feeling like she can't breathe. - Patient reports ongoing pain on her si juanjose extending all the way to the bottom. - She is currently exploring option s and was previously advised to contact her primary OB for referral. Kalli n - Follow up in 2 weeks - Consider scheduling as backu p plan - Monitor for signs of labor: co ntractions, water breaking, or bleeding - Advised to seek transfer of care befor e 34 weeks if considering - Manage discomfort: - For kidney pain and pressure symptom s, try positional changes - Symptoms likely to persist until del maxwell due to uterine compression on ureters - Scheduled at 39 weeks if no spontaneous labor occurs 01/09/25 -?-?-?-?-?-?-?-?-?-?-?-?- 36w 6d 93.497 kg 95/59 absent unknown 37 145 - Tabitha Vicente presents for a visit at 36 weeks and 6 days gestation with a scheduled repeat section on January 24. - She reports redness on her legs that i s not itchy but occurs from the bottom portion of her legs. - She notes getting very hot sometimes when this redness appears. - She observes white spots that appear whenever the flushing happens. - The redness is only present on the e xposed parts of her body and does not involve her trunk or stomach. - She denies any itching associated with the leg redness. - She is developing varicose veins on one leg but not the other ben e. - Repeat section scheduled for January 24 - Ultrasound to be performed tomorrow mo rning at Labor and Delivery, 4th floor of [facility] - If leg rash becomes itchy, take Benadr yl - Elevate legs on pillow while sleeping at night for varicose veins - Follow-up appointment scheduled for e week before section - If any issues arise[facility] 01/22/25 -?-?-?-?-?-?-?-?-?-?-?-?- 38w 5d 94.461 kg 106/70 absent unknown 38 155 - She reports itching in the exposed parts of her leg. - The itching appears to be related to a rash consistent with possible contact dermatitis. - She has been prescribed prednisone for this condition. - Scheduled on 2024 at 7:30 AM - Check-in at 5:30 AM on day of surgery - Fasting after 10 PM the night before s ambreenery - Prescribed prednisone for contact derm atitis with itching on exposed parts of leg TESSA Calculator Estimated Delivery Date Method Current WG Current Estimate 01/31/25 LMP (Certain) 38w 5d Other Estimates 01/16/25 Ultrasound #1 40w 6d 01/31/25 Manual 38w 5d Confirmed by LM P c/w 3rd trimester ultrasound Notes Visit Date: 11/21/24 Last Updated by: Willi Bueno MD - CBC: Hemoglobin 11.7 g/dL, Platelets 182 - Hemoglobin A1c: 4.9% - Glucose: 100 mg/dL, 107 mg/dL - Rp (Rapid plasma reagin): Non-reactive Visit Date: 09/24/24 Last Updated by: Muriel Davis CNM LMP: 04/26/24. EDC 01/31/25. OB panel: O+,abs-, rpr;;nr, rub imm, hbsag-, hiv-, HC-, GC/CT-, NIPT-/female, sma/cf- Office Procedures OBC Clinic LOC & Office Proc's Nursing/Assessment Patient Status: Established Patient OB Clinic Nursing Assessment: Medication Reconciliation, Update PMH in EMR and Vital Signs OB Clinic Coordination of Care: Complex Care and Chronic Disease 1-5, Consent,records obtained, informed consent, Education Simp Pt/Fam, 1 Ins Authorization, Lab and Imaging orders, Results/Orders obtained and Staff clarify orders Special Needs: Heart tones Established Patient Charge Established Patient Point Assignment: 150 Established Patient Point Charge: EP Level 4 (120-155) Assessment & Plan Diagnosis / Problem List (1) Encounter for maternal care for low transverse scar from previous delivery: Status: Acute Plan Problem List - Contact dermatitis - at 38 weeks 5 days Assessment 38-week 5-day patient with scheduled section presenting with contact dermatitis manifesting as pruritic rash on exposed areas of legs, currently being treated with prednisone. Plan - Scheduled on 2024 at 7:30 AM - Check-in at 5:30 AM on day of surgery - Fasting after 10 PM the night before surgery - Prescribed prednisone for contact dermatitis with itching on exposed parts of leg 1. Progress Reviewed gestational age at 38 weeks and 5 days, growth, and heart rate. Planned frequent visits (every 2 weeks until 36 weeks, then weekly). 2. Instructed patient to monitor movements and report decreases immediately. 3. Testing Counseled on routine third-trimester labs per guidelines. Discussed potential need for ultrasound or monitoring based on risk factors. 4. Preeclampsia Precaution Educated on preeclampsia signs: severe headache, vision changes, right upper quadrant pain, sudden swelling. Advised urgent reporting of symptoms and discussed blood pressure monitoring if high risk. 5. Labor Precautions Reviewed labor signs: regular contractions, pelvic pressure, back pain, bleeding, or fluid leakage. Instructed to seek immediate care for these symptoms. 6. Lifestyle and Delivery Preparation Reinforced vitamins, nutrition, and safe activity. Discussed plan, pain management, and . Advised on labor preparation (e.g., hospital bag) and expectations. 7. Psychosocial Support Assessed emotional well-being and offered resources for mental health or parenting support.
[2025-01-22 10:53] VITALS: BP 106/70; PULSE 91; RESP 18; TEMP 36.7; O2SAT 96; BMI 46.8
== END 2025-01-22 11:08 | disposition home or self-care (01) ==
LOC: HODSOBC 10:43
PROVIDERS: Supervising Provider Obstetrics & Gynecology; Visit Provider Obstetrics & Gynecology
DX: O09.293 Supervision of pregnancy with other poor reproductive or obstetric history, third trimester (principal); O34.211 Maternal care for low transverse scar from previous cesarean delivery; O09.893 Supervision of other high risk pregnancies, third trimester; O99.713 Diseases of the skin and subcutaneous tissue complicating pregnancy, third trimester; L25.9 Unspecified contact dermatitis, unspecified cause; Z3A.38 38 weeks gestation of pregnancy
CPT/HCPCS: 99214; G0463

== ENCOUNTER 2025-01-24 05:47 | Inpatient (IN) | payer MEDICAID, SELFPAY ==
[2025-01-24] VITALS (15 sets, daily range): BP systolic 93–108; BP diastolic 44–69; PULSE 67–83; RESP 16–23; TEMP 36.8–37; O2SAT 95–99; BMI 33.5
[2025-01-24] MEDS: RINGERS LACTATED 1000 ML 1,000 ML 999 ML IV ×2 (06:15→07:09)
[2025-01-24 07:17] LABS: Basophils # (Auto) 0.0 Thou/mm3 (0.0-0.2); Basophils % (Auto) 1 % (0-2.5); Eosinophils # (Auto) 0.1 Thou/mm3 (0.0-0.5); Eosinophils % (Auto) 2 % (0-10); Hematocrit 33.5 % (36.0-46.0); Hemoglobin 11.4 g/dL (12.0-16.0); Immature Granulocytes Auto 0.02 Thou/mm3 (0.00-0.00); Lymphocytes # (Auto) 1.5 Thou/mm3 (1.0-4.8); Lymphocytes % (Auto) 27 % (10-50); Mean Corpuscular HGB Conc 34.0 g/dl (31.0-37.0); Mean Corpuscular Hemoglobin 30.0 pg (25.0-35.0); Mean Corpuscular Volume 88 fL (80-100); Monocytes # (Auto) 0.6 Thou/mm3 (0.0-0.8); Monocytes % (Auto) 11 % (0-12); Neutrophils # (Auto) 3.4 Thou/mm3 (1.8-7.7); Neutrophils % (Auto) 60 % (37-80); Nucleated Red Blood Cell # 0.00 Thou/mm3 (0.00-0.00); Nucleated Red Blood Cell % 0 /100 WBC (0); Platelet Count 168 Thou/mm3 (140-440); RDW Standard Deviation 40.6 fL (36.4-46.3); Red Blood Count 3.80 Miln/mm3 (4.00-5.20); White Blood Count 5.7 Thou/mm3 (3.6-11.0)
[2025-01-24] MEDS: FAMOTIDINE INJ 10 MG/ML VIAL 2 ML 20 MG IV (07:33)
[2025-01-24] MEDS: ceFAZolin/D5W 2 GM IV 2 GM/100 ML BAG IV (07:33)
[2025-01-24] MEDS: METOCLOPRAMIDE INJ 5 MG/ML VIAL 2 ML 10 MG IVP (07:34)
--- NOTE | 2025-01-24 07:37 | ESHP_ITS ---
Documentation for date of: 01/24/25 OB Labor/Induct. HPI History of Present Illness : 5 Para: 3 Term pregnancies: 3 pregnancies: 0 Living children: 3 History of Abortions: Spontaneous and Elective: 1 History of sections: Yes (2022) History of : No Date of last menstrual period: 04/26/24 TESSA: 01/31/25 Gestational Age (weeks): 39 Gestational Age (days): 0 Gestational age based on last menstrual period: 39 History of present illness: Patient is a 29-year-old 5 para 3-0-1-3 at 39 weeks and 0 days with a history of previous who is presenting for scheduled repeat low- transverse . Patient received care at the [facility]] RN ENT clinic. She initially started care but the CNM in the office and then subsequently transferred to in due to her history of previous Patient was interested in doing trial of labor after but she was initially informed that our hospital per policy does not permit [place]. I offered transfer of care to [place] or [place] but at the time the fetus was also noted to be in the breech position. Subsequently she elected to proceed with delivery via repeat . Today on presentation she reports occasional contractions but denies any leakage of fluid or vaginal bleeding. She reports adequate movements. Patient did have borderline polyhydramnios during as well as vulvar and lower limb varices which made her very uncomfortable. Labs Labs: Positive: Rubella Titre, Negative: RPR, Hepatitis B, HIV, Chlamydia, Gonorrhea and Group Beta Strep and Unknown: Herpes Type 1, Herpes Type 2 and Covid-19 Past Medical History Surgical History SURGICAL: Positive Section (2022) Meds Home Medications and Allergies Allergies Allergy/AdvReac Type Severity Reaction Status Date / Time No Known Allergies Allergy Unknown Verified 01/24/25 06:19 OB Exam Physical Exam Vital signs: Pulse BP 83 101/63 01/24/25 06:07 01/24/25 06:07 Constitutional Constitutional: no acute distress Routine HEENT Exam Head: Present normocephalic and atraumatic Eye: Present EOMI and PERRL ENT: Present mucous membranes moist Routine Neck Exam Neck: Present supple and trachea midline Routine Cardiovascular Exam Cardiovascular: Present RRR Routine Abdominal Exam Abdominal: Present soft and normoactive bowel sounds Detailed Labor and Delivery Exam Dilation (cm): 0 Presentation: Breech Baseline heart rate: 145 monitor accelerations: 15x15 monitor decelerations: None custodial variability: Average (6-10) Routine Extremities Exam Extremities: Present full ROM Routine Skin Exam Skin: Present intact, dry and warm Routine Neurological Exam Neurological: Present alert, oriented X3 and CN II-XII intact Routine Psychiatric Exam Psychiatric: Present normal affect and normal thought process OB Results Labs 01/24/25 06:45 Labs: Short CBC 01/24/25 Range/Units 06:45 WBC 5.7 (3.6-11.0) Thou/mm3 Hgb 11.4 L (12.0-16.0) g/dL Hct 33.5 L (36.0-46.0) % Plt Count 168 (140-440) Thou/mm3 OB Assessment & Plan Assessment and Plan (1) Encounter for maternal care for low transverse scar from previous delivery: Status: Acute Assessment and plan: Admit to inpatient status for repeat low transverse IV access, CBC, type and screen, LR at 125, RPR, COVID-19 test GBS negative Ancef 2 g prior to surgery start Trejo catheter to drainage SCDs for DVT prophylaxis Anesthesia to preop for spinal anesthesia Scheduled for surgery.
[2025-01-24 08:10] LABS: Syphilis Nonreactive (Nonreactive)
--- NOTE | 2025-01-24 08:35 | ESOP_ITS ---
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 The patient was brought to the operating room and identified with two patient identifiers. She was placed in the supine position, and spinal anesthesia was administered. After confirming adequate anesthesia, the abdomen and perineum were prepped and draped in the usual sterile fashion. A Trejo catheter was inserted for continuous bladder drainage. A low transverse (Pfannenstiel) skin incision was made using a scalpel and carried through subcutaneous tissue to the rectus fascia. The previous scar was identified and excised in its entirety. The fascia was incised transversely and dissected off the rectus muscles both superiorly and inferiorly. The rectus bellies were in the midline, and the peritoneum was entered bluntly with the surgeon?s finger. The peritoneal opening was extended to allow adequate exposure. An Sandro O-ring retractor was placed for optimal visualization. The lower uterine segment was palpated, and the bladder flap was reflected inferiorly. A low transverse uterine incision (Taryn Mabry) was made with a scalpel and extended bluntly. The amniotic membranes were ruptured, and clear fluid was released. The fetus was in vertex presentation.The head was elevated out of the maternal pelvis. The shoulders and body were delivered smoothly with gentle fundal pressure. The umbilical cord was doubly clamped and cut, and the infant was handed to the awaiting team. Cord gases were obtained. The placenta was delivered with gentle traction on the cord. The uterine cavity was cleared of membranes and clots. The hysterotomy angles were secured with Allis clamps. The uterine incision was closed in two layers using #1 Monocryl: the first layer was a running locked suture to approximate the myometrium, and the second layer imbricated the serosa and myometrium. Hemostasis was confirmed. The Sandro retractor was removed. Peritoneal edges and rectus muscles were reapproximated. Rectus fascia was closed with running 0 Vicryl. The subcutaneous tissue was irrigated with warm saline, and bleeding points were cauterized using Bovie electrocautery. Subcutaneous tissue was approximated with 3-0 Vicryl. The skin was closed using 4-0 Monocryl. A Dermabond Prenio sterile dressing was applied. The patient was cleaned, undraped, and transferred to the recovery room in stable and awake condition. She tolerated the procedure well. All counts were correct ?2. Specimen: none Estimated blood loss (ml): 650 Complications: none Surgical staff Operation Date: 01/24/25 07:45 <No data on this case meets the specified criteria> Diagnosis Discharge Diagnosis (1) delivery delivered: Status: Acute (2) Encounter for maternal care for low transverse scar from previous delivery: Status: Acute Problem List Completed Was Problem List Reviewed/Reconciled?: Yes
--- NOTE | 2025-01-24 08:49 | PD.LDDELS ---
Data (Baker) Data Hx Section: Yes (2022) : 5 Term: 3 : 0 Livin Abortions: Spontaneous & Theraputic: 1 Delivery Data (Baker) Labor Data Induction/Augmentation Agent: None ROM date: 01/24/25 ROM time: 08:14 Amniotic membrane rupture type: Artificial Amniotic fluid description: Clear Delivery Data Onset of labor date: 01/24/25 Onset of labor time: 08:14 Complete dilation date: 01/24/25 Complete dilation time: 08:14 [place] delivery date: 01/24/25 delivery time: 08:14 Placenta delivery date: 01/24/25 Placenta delivery time: 08:15 Stage 1 total time: Labor - Stage 1 Duration 0 minutes Delivered by: Myles Delivery nurse: Mamadou Neworn nurse: Liliya Screen Operator at delivery: Yes (Avery) Support person(s) at delivery: FOB Other staff at delivery: Katlin, INEZ Mcintyre, DINESH Leyva, OB OR tech [email or web address], SYSTEMS SOFTWARE DEVELOPER Delivery Method Delivery method: Low Transverse Presentation: Vertex Anesthesia Type Anesthesia Type: Spinal Anesthesia type: Spinal Placenta Placenta delivery description: Manual Removal Cord blood sent to lab: Yes cord blood collection: Cord Blood Type Episiotomy Episiotomy description: None Umbilical Cord cord description: 3 Vessels Data (Baker) Data order: 1 Tolono's gender: Female Identification band number: [id number] weight (gms): 4290 g Weight (pounds): 9 lbs and 7.3 ozs length: 50.8 cm 1 minute: 7 5 minutes: 9
[2025-01-24] MEDS: ACETAMINOPHEN IVPB 1,000 MG/100 ML VIAL 250 MG IV (09:48)
[2025-01-24] MEDS: OXYTOCIN in NS 20 units 20 UNIT/1,000 ML BAG 125 UNIT IV (11:15)
[2025-01-24] MEDS: IBUPROFEN TAB 400 MG TABLET 800 MG PO (13:24)
[2025-01-24] MEDS: KETOROLAC INJ 30 MG/ML VIAL IVP (20:17)
[2025-01-24] MEDS: RINGERS LACTATED 1000 ML 1,000 ML 125 ML IV (20:18)
--- NOTE | 2025-01-24 23:14 | PC.NURSE ---
Pt is complaining of itchiness on her arms and legs. Notify MD Bueno of pt's complain. New order received.
[2025-01-25] VITALS (7 sets, daily range): BP systolic 93–112; BP diastolic 51–75; PULSE 63–87; RESP 14–18; TEMP 36.4–36.9; O2SAT 97–99
[2025-01-25] MEDS: KETOROLAC INJ 30 MG/ML VIAL IVP ×2 (02:15→12:48)
[2025-01-25 07:34] LABS: Basophils # (Auto) 0.0 Thou/mm3 (0.0-0.2); Basophils % (Auto) 0 % (0-2.5); Eosinophils # (Auto) 0.1 Thou/mm3 (0.0-0.5); Eosinophils % (Auto) 1 % (0-10); Hematocrit 29.7 % (36.0-46.0); Hemoglobin 9.7 g/dL (12.0-16.0); Immature Granulocytes Auto 0.04 Thou/mm3 (0.00-0.00); Lymphocytes # (Auto) 2.6 Thou/mm3 (1.0-4.8); Lymphocytes % (Auto) 22 % (10-50); Mean Corpuscular HGB Conc 32.7 g/dl (31.0-37.0); Mean Corpuscular Hemoglobin 30.3 pg (25.0-35.0); Mean Corpuscular Volume 93 fL (80-100); Monocytes # (Auto) 0.8 Thou/mm3 (0.0-0.8); Monocytes % (Auto) 7 % (0-12); Neutrophils # (Auto) 8.0 Thou/mm3 (1.8-7.7); Neutrophils % (Auto) 69 % (37-80); Nucleated Red Blood Cell # 0.00 Thou/mm3 (0.00-0.00); Nucleated Red Blood Cell % 0 /100 WBC (0); Platelet Count 154 Thou/mm3 (140-440); RDW Standard Deviation 43.1 fL (36.4-46.3); Red Blood Count 3.20 Miln/mm3 (4.00-5.20); White Blood Count 11.5 Thou/mm3 (3.6-11.0)
--- NOTE | 2025-01-25 08:41 | PD.LDPPPRG ---
Subjective Subjective Interval history: Delivery type: Patient doing well this morning. No acute complaints. Ambulating, tolerating p.o., and voiding without difficulty. HTN/Pre-E screen negative: No CP, SOB, CHOI, visual changes, RUQ pain. : Yes Lochia: diminishing Bowel: Flatus + / BM + UOP: Adequate Exam Vital Signs Temp Pulse Resp BP Pulse Ox O2 Del Method 98.1 F 63 18 99/61 97 Room Air 01/25/25 04:00 01/25/25 04:00 01/25/25 04:00 01/25/25 04:00 01/25/25 04:00 01/25/25 04:00 Constitutional Constitutional: no acute distress Routine HEENT Exam Head: Present normocephalic and atraumatic Eye: Present EOMI and PERRL ENT: Present mucous membranes moist Routine Neck Exam Neck: Present supple and trachea midline Routine Respiratory Exam Respiratory: Present chest non-tender, lungs clear, normal breath sounds and no resp distress Routine Cardiovascular Exam Cardiovascular: Present RRR Routine Abdominal Exam Abdominal: Present soft and normoactive bowel sounds Routine Extremities Exam Extremities: Present full ROM Routine Skin Exam Skin: Present intact, dry and warm Routine Neurological Exam Neurological: Present alert, oriented X3 and CN II-XII intact Routine Psychiatric Exam Psychiatric: Present normal affect and normal thought process Objective Labs 01/25/25 07:02 Labs: Laboratory Results - last 24 hr 01/24/25 01/25/25 07:06 07:02 WBC 11.5 H D RBC 3.20 L Hgb 9.7 L Hct 29.7 L MCV 93 MCH 30.3 MCHC 32.7 RDW Std Deviation 43.1 Plt Count 154 Neut % (Auto) 69 Lymph % (Auto) 22 [place] % (Auto) 7 Eos % (Auto) 1 Baso % (Auto) 0 Neut # (Auto) 8.0 H Lymph # (Auto) 2.6 [place] # (Auto) 0.8 Eos # (Auto) 0.1 Baso # (Auto) 0.0 Immature Gran # (Auto) 0.04 H Absolute Nucleated RBC 0.00 Immature Gran % 0 Nucleated RBC % 0 Blood Type O Positive Antibody Screen NEGATIVE Assessment & Plan Problem List (1) delivery delivered: Status: Acute Assessment and plan: 1. Continue routine /post-op care 2. Labs reviewed, cbc appropriate 3. Remove dressing/Trejo 4. Encourage to ambulate, shower 5. Encourage PO intake, breast feeding (2) Encounter for maternal care for low transverse scar from previous delivery: Status: Acute Time Spent With Patient Time: Total time spent is greater than 50% in coordination of care (as documented) at patient's floor/unit and/or counseling patient:
[2025-01-25] MEDS: ACETAMINOPHEN 325 MG TABLET 650 MG PO (09:02)
[2025-01-25] MEDS: DOCUSATE SOD 100 MG CAPSULE PO (09:02)
[2025-01-25] MEDS: ACETAMIN/CAFF/BUTAL (Fioricet) 1 TAB PO (12:31)
[2025-01-25] MEDS: SUMAtriptan INJ 6 MG/0.5 ML VIAL SC ×2 (13:39→17:51)
[2025-01-25] MEDS: IBUPROFEN TAB 400 MG TABLET 800 MG PO (19:55)
[2025-01-26] MEDS: SUMAtriptan INJ 6 MG/0.5 ML VIAL SC (00:41)
[2025-01-26 04:00] VITALS: BP 97/60; PULSE 68; RESP 16; TEMP 36.6; O2SAT 98
[2025-01-26] MEDS: IBUPROFEN TAB 400 MG TABLET 800 MG PO (04:17)
--- NOTE | 2025-01-26 05:54 | PD.LDPPPRG ---
Subjective Subjective Interval history: Delivery type: Patient doing well this morning. No acute complaints. Ambulating, tolerating p.o., and voiding without difficulty. HTN/Pre-E screen negative: No CP, SOB, CHOI, visual changes, RUQ pain. : Yes Lochia: diminishing Bowel: Flatus + / BM + UOP: Adequate Exam Vital Signs Temp Pulse Resp BP Pulse Ox O2 Del Method 97.9 F 68 16 97/60 98 Room Air 01/26/25 04:00 01/26/25 04:00 01/26/25 04:00 01/26/25 04:00 01/26/25 04:00 01/26/25 04:00 Constitutional Constitutional: no acute distress Routine HEENT Exam Head: Present normocephalic and atraumatic Eye: Present EOMI and PERRL ENT: Present mucous membranes moist Routine Neck Exam Neck: Present supple and trachea midline Routine Respiratory Exam Respiratory: Present chest non-tender, lungs clear, normal breath sounds and no resp distress Routine Cardiovascular Exam Cardiovascular: Present RRR Routine Abdominal Exam Abdominal: Present soft and normoactive bowel sounds Routine Extremities Exam Extremities: Present full ROM Routine Skin Exam Skin: Present intact, dry and warm Routine Neurological Exam Neurological: Present alert, oriented X3 and CN II-XII intact Routine Psychiatric Exam Psychiatric: Present normal affect and normal thought process Objective Labs 01/25/25 07:02 Labs: Laboratory Results - last 24 hr 01/25/25 07:02 WBC 11.5 H D RBC 3.20 L Hgb 9.7 L Hct 29.7 L MCV 93 MCH 30.3 MCHC 32.7 RDW Std Deviation 43.1 Plt Count 154 Neut % (Auto) 69 Lymph % (Auto) 22 [place] % (Auto) 7 Eos % (Auto) 1 Baso % (Auto) 0 Neut # (Auto) 8.0 H Lymph # (Auto) 2.6 [place] # (Auto) 0.8 Eos # (Auto) 0.1 Baso # (Auto) 0.0 Immature Gran # (Auto) 0.04 H Absolute Nucleated RBC 0.00 Immature Gran % 0 Nucleated RBC % 0 Assessment & Plan Problem List (1) delivery delivered: Status: Acute Assessment and plan: PPD/POD#2 1. Continue routine care 2. Transition to PO meds. 3. Encourage to ambulate/ breast-feed 4. Anticipate discharge home today. (2) Encounter for maternal care for low transverse scar from previous delivery: Status: Acute Time Spent With Patient Time: Total time spent is greater than 50% in coordination of care (as documented) at patient's floor/unit and/or counseling patient:
--- NOTE | 2025-01-26 05:54 | PD.LDDS ---
DS: Providers Provider Date of admission: 01/24/25 05:47 Primary care physician: Physician No Primary/Family Admitting Provider: Willi Bueno MD Attending Provider on Admission: Willi Bueno MD Consults: 01/24/25 09:42 Referral Routine Comment: Attending Provider on DC: Willi Bueno MD Discharging Provider: Willi Bueno MD DS: Diagnosis Discharge Diagnosis (1) Encounter for maternal care for low transverse scar from previous delivery: Status: Acute (2) Migraine aura, persistent: Status: Acute Problem List Completed Was Problem List Reviewed/Reconciled?: Yes Summary/Hosp Course Brief History: Patient is a 29-year-old 5 para 3-0-1-3 at 39 weeks and 0 days with a history of previous who is presenting for scheduled repeat low-transverse . Patient received care at the [facility] clinic. She initially started care but the CNM in the office and then subsequently transferred to [place] due to her history of previous Patient was interested in doing trial of labor after but she was initially informed that our hospital per policy does not permit [place]. I offered transfer of care to [place] or [place] but at the time the fetus was also noted to be in the breech position. Subsequently she elected to proceed with delivery via repeat . Today on presentation she reports occasional contractions but denies any leakage of fluid or vaginal bleeding. She reports adequate movements. Patient did have borderline polyhydramnios during as well as vulvar and lower limb varices which made her very uncomfortable. Peripartum Data Delivery Method: Low Transverse Episiotomy Description: None Procedures: Procedures Operation Date: 01/24/25 07:45 Actual Procedure Side Surgeon p in OB Willi Bueno MD Time Spent with Patient Time attestation: Total time spent providing and/or coordinating discharge services: Exam Vital Signs Temp Pulse Resp BP Pulse Ox O2 Del Method 97.9 F 68 16 97/60 98 Room Air 01/26/25 04:00 01/26/25 04:00 01/26/25 04:00 01/26/25 04:00 01/26/25 04:00 01/26/25 04:00 Discharge Plan Plan Patient Disposition: HOME (Self Care) Patient condition on transfer: Stable Prescriptions/Referrals Prescriptions/Med Rec: New hydrocodone-acetaminophen 5-325 mg tablet 1 tab PO Q6H MDD 4 PRN (Reason: pain) 5 Days Qty: 20 0RF docusate sodium [Stool Softener] 100 mg capsule 100 mg PO QDAY 30 Days Qty: 30 0RF ibuprofen 600 mg tablet 600 mg PO Q6H MDD 4 PRN (Reason: fever or pain) 10 Days Qty: 40 0RF sumatriptan succinate [Imitrex] 100 mg tablet See Rx Instructions .ROUTE .COMPLEX Qty: 20 0RF Rx Instructions: take 1 tab at onset of headache; if no relief, may repeat 1 tab after at least 2 hrs; max = 2 tabs/24 hrs Continued Plus 29 mg iron- 1 mg tablet 1 tab PO QDAY 90 Days Qty: 90 3RF Referrals: Willi Bueno MD [Physician, INDEP[employer]ENT [employer]OP CONSULTANT] No Primary/Family,Physician [Primary Care Provider] Patient/Caregiver Discharge Instructions Meds to Beds: Yes Discharge Activity: activity as tolerated Education Materials: Breast Care After , After a , : Caring for Yourself, Headache Migraine Stages Tx, Headache Migraine Triggers Prevent, Headache Migraine Meds Lifestyle, C Section Dc, Feel Healthy After Print Language: Hebrew Stand Alone Forms: Natasha Award Info., Patient Portal Info Letter, DC from Surgery Discharge Order Discharge Orders: Discharge (Routine); Ordered 01/26/25 Ordered By: Willi Bueno Planned Discharge Date 01/26/25
[2025-01-26 07:40] VITALS: BP 93/56; PULSE 76; RESP 16; TEMP 36.9; O2SAT 95
[2025-01-26] MEDS: DOCUSATE SOD 100 MG CAPSULE PO (08:09)
== END 2025-01-26 12:57 | disposition home or self-care (01) | DRG 540 ==
LOC: S4SX 06:41 → S4NX 07:46
PROVIDERS: Admitting Provider Obstetrics & Gynecology; Visit Provider Obstetrics & Gynecology
PROC: 10D00Z1 Extraction of Products of Conception, Low, Open Approach (ICD-10-PCS; CPT 59514; principal; 2025-01-24 07:30)
DX: O34.211 Maternal care for low transverse scar from previous cesarean delivery (principal); O32.1XX0 Maternal care for breech presentation, not applicable or unspecified; G43.509 Persistent migraine aura without cerebral infarction, not intractable, without status migrainosus; O90.89 Other complications of the puerperium, not elsewhere classified; Z3A.39 39 weeks gestation of pregnancy; Z37.0 Single live birth
CPT/HCPCS: 36415; 80307; 85025; 86780; 86850; 86900; 86901; A4217; A4314; A4649; J0131; J0689; J1100; J1200; J1885; J2250; J2274; J2371; J2405; J2590; J2765; J3010; J3030; J3490; J7120; A9270; J2270

== ENCOUNTER 2025-02-18 14:08 | Outpatient (AMB) | payer MEDICAID, SELFPAY ==
[2025-02-18 14:22] VITALS: BP 106/65; PULSE 66; RESP 14; TEMP 36.6; O2SAT 98; BMI 29.7
--- NOTE | 2025-02-18 14:22 | AMBOBPPN_ITS ---
Vital Signs 02/18/25 14:22 Height 1.68 m Height Method Stated Weight 83.574 kg Weight Measurement Method Standing Scale BMI 29.7 BP 106/65 Blood Pressure Source Automatic Cuff Blood Pressure Location Left Upper Arm Position Sitting Respiration 14 Pulse 66 Pulse Source Monitor Temp 97.9 F Temp Source Oral Pulse Oximetry (%) 98 Oxygen Delivery Method Room Air Allergies/Home Meds Allergies & Medications Allergies No Known Allergies Allergy (Unknown, Verified 02/18/25 14:26) Medication Reconciliation vitamins with calcium no.72-iron 29 mg-folic acid 1 mg tablet ( Plus) 1 tab PO QDAY 90 days #90 tabs 07/08/24 [Rx Confirmed 02/18/25] sumatriptan succinate 100 mg tablet (Imitrex) See Rx Instructions PO .COMPLEX #20 tabs 01/26/25 [Rx Confirmed 02/18/25] Intake Visit Data Collection New Patient or Established: Established Patient (seen at [facility] within 3 years) Reason for Visit:: Seen by Clinical Staff ONLY (RN/MA): No Horticulture Superintendent Required: No Do You Feel Safe at Home: Yes Authorities Contacted: N/A PCP or OBGYN visit in last 3 months: Yes Hx Now: No Are you currently on any form of Control: No Pain Present Currently: No Pain Scale Used: [place]/Numerical Pain scale:: 0 Smoking Status Smoking Status: Never smoker Immunizations Flu Vaccine in the Last 12 Months: Yes Flu Vaccine Exclusion Criteria: Already Received 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: Past Medical History Past Medical History: No Hx Neurological Disorders, No Hx Cardiac Disorders, No Hx Cancer, No Hx Blood Disorders, No Hx Gastrointestinal Disorders, No Hx Renal Disease, No Hx Diabetes Mellitus Type 1 and No Hx Diabetes Mellitus Type 2 Questionnaires Covid-19 Vaccine Questionnaire Has patient been vacinated for Covid-19 Have you been vacinated for Covid-19: Yes Social History Living Situation History Lives With: Family Housing: House Tobacco History Smoking Status: Never smoker Second Hand Smoke Exposure: No Alcohol History Alcohol Intake: Never Alcohol Intake Frequency: holidays/special occasions only Domestic Abuse History Do You Feel Safe at Home: Yes EPDS - PP Depression Screening [place] Pospartum Depression Screen I have been able to laugh and see the funny side of things: (0) As much as I always could I have looked forward with enjoyment to things: (0) As much as I ever did I have blamed myself unnecessarily when things went wrong: (0) No, never I have been anxious or worried for no good reason: (1) Hardly ever I have felt scared or panicky for no very good reason: (0) No, not at all Things have been getting on top of me: (0) No, I have been coping as well as ever I have been so unhappy that I have had difficulty sleeping: (0) No, not at all I have felt sad or miserable: (0) No, not at all I have been so unhappy that I have been crying: (0) No, never The thought of harming myself has occurred to me: (0) Never EPDS completed yes HPI Interval History: Tabitha Vicente presents with ongoing vaginal discharge, migraines, and mood changes approximately 3 weeks status post section on January 24. She reports continued vaginal discharge that is currently brown in color and has developed a foul smell. The patient expresses concern about whether the discharge and its odor are normal. She has been experiencing migraines that she attributes to , though she acknowledges these may be independent issues. Regarding her emotional state, the patient reports feeling very sad but does not believe she has depression. She describes these feelings in the context of the normal period. The patient is exclusively and her infant is doing well. She has been using a hospital-provided abdominal binder but finds it is not tight enough for adequate compression support. She has questions about appropriate pain medication use while and vitamin supplementation needs during this period. She has a history of section on January 24, 2025. The patient has been taking Tylenol and ibuprofen as needed for pain. She has an obstetric history of G1 T1 L1. She is currently exclusively and has one living child. ROS: Negative except as stated above, limited to 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 and pertinent complaints. Exam Narrative Physical exam: - Abdominal: incision appears well-healed with skin sealed off. There is a visible bump at the incision site. General General Appearance: alert, in no apparent distress and healthy appearing Head Head exam: atraumatic Neck Neck exam: Present normal inspection and trachea midline Chest Chest inspection: Present normal inspection and symmetric chest wall rise External exam: Present normal external exam; Absent tenderness Neuro Neurological exam: Present oriented X3 Psych Psychiatric exam: Present normal affect and normal mood Office Procedures OBC Clinic LOC & Office Proc's Nursing/Assessment Patient Status: Established Patient OB Clinic Nursing Assessment: Medication Reconciliation, Update PMH in EMR and Vital Signs OB Clinic Coordination of Care: Complex Care and Chronic Disease 1-5, Consent,records obtained, informed consent, Education Simp Pt/Fam, 1 Ins Authorization, Lab and Imaging orders, Results/Orders obtained and Staff clarify orders Established Patient Charge Established Patient Point Assignment: 120 Established Patient Point Charge: EP Level 4 (120-155) Assessment & Plan Diagnosis / Problem List (1) Encounter for maternal care for low transverse scar from previous delivery: Status: Acute (2) Encounter for surgical aftercare following surgery on the genitourinary system: Status: Acute Plan vaginal discharge with odor: - Brown vaginal discharge with foul odor at 3 weeks . - Brown discharge with odor suggests bacterial infection. - Patient denies fever or chills. Plan: - Prescribe topical antibiotic cream to avoid systemic absorption into breast milk. - Patient to monitor for improvement in odor. - Call if no improvement for further management. - Send prescription to [facility] pharmacy. migraines: - Patient experiencing migraines while exclusively . - Likely related to inadequate caloric intake and dehydration given energy expenditure for milk production, potentially compounded by sleep deprivation. Plan: - Increase caloric intake and fluid consumption. - Ensure adequate sleep, nap when baby naps. - Tylenol 500mg (double strength) safe for headache relief while . - Ibuprofen also safe for headache management. section incision healing: - incision from January 24 appears well-healed with good skin zari roximation at 3+ weeks . - Patient reports current abdominal binder insufficient compression. Plan: - Recommend tighter elastic compression garment (corset-style) from [employer]. - Continue compression to reduce movement-related discomfort and promote faster healing. mood changes: - Patient reports sadness but denies depression at 3 weeks . - Symptoms consistent with blues related to normal hormonal transition. Plan: - Monitor mood symptoms. - Reassess at 2-month visit for persistent depressive symptoms requiring treatment. - Ensure adequate sleep and rest periods. nutritional needs: - Patient exclusively with concern for vitamin depletion through breast milk production. Plan: - Continue multivitamin supplementation ( vitamins or women's daily vitamin acceptable). - Vitamin D and other nutritional labs to be checked at 2-month visit. Routine follow-up: - Patient at 3+ weeks status post section with routine care needs. Plan: - Return in 1 month for 2-month visit. - Laboratory studies including vitamin D levels to be drawn few days prior to next appointment. - Provide lab order for patient to complete before visit.
== END 2025-02-18 14:35 | disposition home or self-care (01) ==
LOC: HODSOBC 14:08
PROVIDERS: Supervising Provider Obstetrics & Gynecology; Visit Provider Obstetrics & Gynecology
DX: Z39.2 Encounter for routine postpartum follow-up (principal); O90.89 Other complications of the puerperium, not elsewhere classified; G43.909 Migraine, unspecified, not intractable, without status migrainosus; N89.8 Other specified noninflammatory disorders of vagina; Z39.1 Encounter for care and examination of lactating mother
CPT/HCPCS: 99214; G0463